=== PATIENT | female | born 1925 | race Caucasian/White ===

== ENCOUNTER 2016-04-10 14:56 | Observation (INO) | payer MEDICARE, OTHER ==
[2016-04-10 15:33] LABS: ABSOLUTE BASOPHILS # (AUTO) 0.1 10^3/uL (0.0-0.2); ABSOLUTE EOSINOPHILS # (AUTO) 0.8 10^3/uL (0.0-0.6); ABSOLUTE MONOCYTES (AUTO) 1.1 10^3/uL (0.1-1.4); BASOPHILS % (AUTO) 0.9 % (0-2); EOSINOPHILS % (AUTO) 8.5 % (0-6); HEMATOCRIT 38.7 % (36.0-47.0); HEMOGLOBIN 12.1 g/dL (12.0-15.5); HGB HCT DIFFERENCE -2.4; LYMPHOCYTES % (AUTO) 22.8 % (13-45); MEAN CORPUSCULAR HEMOGLOBIN 26.8 pg (27.0-33.4); MEAN CORPUSCULAR HGB CONC 31.2 g/dL (32.0-36.0); MEAN CORPUSCULAR VOLUME 86 fl (80-97); RED CELL DISTRIBUTION WIDTH 16.7 % (11.5-14.0); SEGMENTED NEUTROPHILS % (AUTO) 55.8 % (42-78)
[2016-04-10 15:48] LABS: ALANINE AMINOTRANSFERASE 21 U/L (9-52); ALBUMIN 4.2 g/dL (3.5-5.0); ALKALINE PHOSPHATASE 62 U/L (38-126); ANION GAP 16 (5-19); ASPARTATE AMINO TRANSFERASE 16 U/L (14-36); BILIRUBIN,TOTAL 0.4 mg/dL (0.2-1.3); BLOOD UREA NITROGEN 21 mg/dL (7-20); CALCIUM 9.1 mg/dL (8.4-10.2); CARBON DIOXIDE 25 mmol/L (22-30); CHLORIDE 98 mmol/L (98-107); CREATINE KINASE 28 U/L (30-135); CREATININE RESULT 0.68 mg/dL (0.52-1.25); GLUCOSE 157 mg/dL (75-110); POTASSIUM 3.7 mmol/L (3.6-5.0); SODIUM 138.8 mmol/L (137-145); TOTAL PROTEIN 6.8 g/dL (6.3-8.2)
[2016-04-10 16:00] LABS: CREATINE KINASE MB 1.17 ng/mL (<4.55); TROPONIN I < 0.012 ng/mL
--- NOTE | 2016-04-10 16:37 | EKG REPORT ---
SEVERITY:- ABNORMAL ECG - ATRIAL FIBRILLATION, V-RATE 63-85 BORDERLINE RIGHT AXIS DEVIATION BORDERLINE T ABNORMALITIES, ANT-LAT LEADS BORDERLINE PROLONGED QT INTERVAL : Confirmed by: Uri De La Rosa MD 10-Apr-2016 16:36:46
[2016-04-10 17:00] LABS: PARTIAL THROMBOPLASTIN TIME 32.2 SEC (23.5-35.8); PROTHROMBIN TIME 25.8 SEC (11.4-15.4)
[2016-04-10 17:54] LABS: VENOUS BLOOD BASE EXCESS -0.4 mmol/L; VENOUS BLOOD PCO2 43.9 mmHg (35-63); VENOUS BLOOD PH 7.37 (7.30-7.42)
[2016-04-10] MEDS ORDERED: NORMAL SALINE 1000 ML 1,000 ML IV ONE (18:03)
[2016-04-10] MEDS ORDERED: ONDANSETRON HCL INJ/PF 4 MG/2 ML SDV IV ONE (18:03)
[2016-04-10 18:16] LABS: APPEARANCE,URINE SLIGHTLY-CLOUDY; BILIRUBIN,URINE NEGATIVE (NEGATIVE); GLUCOSE, URINE NEGATIVE (NEGATIVE); KETONES,URINE NEGATIVE (NEGATIVE); LEUKOCYTE ESTERASE,URINE TRACE (NEGATIVE); NITRITE,URINE NEGATIVE (NEGATIVE); PROTEIN,URINE NEGATIVE (NEGATIVE); URINE SPECIFIC GRAVITY 1.013; UROBILINOGEN,URINE NEGATIVE mg/dL (<2.0)
--- NOTE | 2016-04-10 18:20 | ER Document Report ---
ED General - General Chief Complaint: Near Syncope Stated Complaint: POSSIBLE SYNCOPE TRAVEL OUTSIDE OF THE [place] IN LAST 30 DAYS: No - HPI Patient complains to provider of: syncopal episode Notes: Patient coming in with syncope. Patient is originally from [place] has been recurrent since January states that she always comes in here for the wintertime. Has history of fibrillation on anticoagulation hypertension. Patient states compliant with her medications since they were all small today shopping when patient felt uneasy and sat down family states that the patient sat down she passed out. States patient was out for approximate 5-10 minutes. States patient has a history of syncopal before lasting for episode was approximately 2 years ago. Says that does not come to the hospital for any further evaluation. Patient states the pain no head pain chest pain no abdominal pain and nausea no vomiting fevers no chills prior to or after episode. Patient states currently she does feel "awful" - Related Data Allergies/Adverse Reactions: celecoxib [From Celebrex] Allergy (Verified 04/10/16 15:12) solifenacin succinate [From Vesicare] Allergy (Verified 04/10/16 15:12) Sulfa (Sulfonamide Antibiotics) Allergy (Verified 04/10/16 15:12) tolectrin Allergy (Uncoded 04/10/16 15:12) Home Medications: Current Home Medications Acetaminophen [Tylenol Extra Strength] 500 mg PO QID PRN 04/10/16 [History] Atorvastatin Calcium 10 mg PO QHS 04/10/16 [History] Cholecalciferol (Vitamin D3) [Vitamin D3 400 Unit Tablet] 400 unit PO DAILY [History] Cyanocobalamin (Vitamin B-12) [Vitamin B-12] 100 mcg PO MOWEFR 04/10/16 [History ] Diltiazem HCl [Cardizem Cd 180 mg Capsule] 180 mg PO BID 04/10/16 [History] Fluticasone Propionate [Flovent Hfa 110 Mcg Inhalation Aerosol 12 gm] 1 puff IH Q12 PRN 04/10/16 [History] Fluticasone/Salmeterol [Advair 500-50 Diskus 14 Dose/Diskus] 1 inh IH Q12 PRN [History] Hydrochlorothiazide 25 mg PO DAILY 04/10/16 [History] Lutein 6 mg PO DAILY 04/10/16 [History] Nitroglycerin [Nitrostat 0.4 mg (1/150 Gr) Tabs 25/Bottle] 1 tab SL Q5MP PRN [History] Warfarin Sodium 3 mg PO ASDIR PRN 04/10/16 [History] Past Medical History - Social History Smoking Status: Never Smoker Chew tobacco use (# tins/day): No Frequency of alcohol use: None Drug Abuse: None Family History: Reviewed & Not Pertinent, Hypertension Patient has suicidal ideation: No Patient has homicidal ideation: No - Past Medical History Cardiac Medical History: Reports: Hx Atrial Fibrillation, Hx Coronary Artery Disease, Hx Hypercholesterolemia, Hx Hypertension, Hx Heart Murmur Pulmonary Medical History: Reports: Hx Asthma, Hx Bronchitis, Hx COPD, Hx Pneumonia Denies: Hx Tuberculosis Endocrine Medical History: Reports: Hx Diabetes Mellitus Type 2, Hx Hypothyroidism Renal/ Medical History: Denies: Hx Peritoneal Dialysis Malignancy Medical History: Reports: Hx Skin Cancer GI Medical History: Reports: Hx Ulcer Musculoskeltal Medical History: Reports Hx Arthritis Psychiatric Medical History: Denies: Hx Depression Traumatic Medical History: Reports: Hx Fractures - neck Past Surgical History: Reports: Hx Cardiac Catheterization, Hx Section , Hx Coronary Artery Bypass Graft, Hx Coronary Stent, Hx Hysterectomy, Hx Orthopedic Surgery - foot, Hx Tonsillectomy. Denies: Hx Pacemaker - Immunizations Hx Diphtheria, Pertussis, Tetanus Vaccination: Yes Hx Pneumococcal Vaccination: 12/19/13 Review of Systems - Review of Systems Constitutional: No symptoms reported EENT: No symptoms reported Cardiovascular: Syncope Respiratory: No symptoms reported Gastrointestinal: No symptoms reported Genitourinary: No symptoms reported Female Genitourinary: No symptoms reported Musculoskeletal: No symptoms reported Skin: No symptoms reported Hematologic/Lymphatic: No symptoms reported Neurological/Psychological: No symptoms reported -: Yes All other systems reviewed and negative Physical Exam - Vital signs Vitals: Temp Resp BP Pulse Ox 97.2 F 15 121/95 H 94 04/10/16 15:04 04/10/16 15:04 04/10/16 15:04 04/10/16 15:04 Interpretation: Normal - General General appearance: Appears well, Alert - HEENT Head: Normocephalic, Atraumatic Eyes: Normal Pupils: PERRL - Respiratory Respiratory status: No respiratory distress Chest status: Nontender Breath sounds: Normal Chest palpation: Normal - Cardiovascular Rhythm: Irregularly irregular Heart sounds: Normal auscultation Murmur: No - Abdominal Inspection: Normal Distension: No distension Bowel sounds: Normal Tenderness: Nontender Organomegaly: No organomegaly - Back Back: Normal, Nontender - Extremities General upper extremity: Normal inspection, Nontender, Normal color, Normal ROM , Normal temperature General lower extremity: Normal inspection, Nontender, Normal color, Normal ROM , Normal temperature, Normal weight bearing. No: Leland's sign - Neurological Neuro grossly intact: Yes Cognition: Normal Orientation: AAOx4 [place] Coma Scale Eye Opening: Spontaneous [place] Coma Scale Verbal: Oriented Yudy Coma Scale Motor: Obeys Commands Yudy Coma Scale Total: 15 Speech: Normal Motor strength normal: LUE, RUE, LLE, RLE Sensory: Normal - Psychological Associated symptoms: Normal affect, Normal mood - Skin Skin Temperature: Warm Skin Moisture: Dry Skin Color: Normal Course - Re-evaluation Re-evalutation: 04/10/16 22:51 Patient coming in for syncope. No clear-cut etiology was seen. Unfortunately patient was unable to perform orthostatic testing according to nursing staff. Discussed with hospitalist will admit the patient for observation - Vital Signs Vital signs: Temp Pulse Resp BP Pulse Ox 98.0 F 18 155/119 H 97 04/10/16 21:43 04/10/16 19:00 04/10/16 19:00 04/10/16 19:00 - Laboratory Result Diagrams: 04/10/16 15:20 04/10/16 15:20 Laboratory results interpreted by me: 04/10/16 04/10/16 04/10/16 15:20 15:20 16:39 MCH 26.8 L MCHC 31.2 L RDW 16.7 H Eosinophils % 8.5 H Absolute Eosinophils 0.8 H PT 25.8 H BUN 21 H Glucose 157 H Creatine Kinase 28 L Ur Leukocyte Esterase Urine Ascorbic Acid 04/10/16 17:10 MCH MCHC RDW Eosinophils % Absolute Eosinophils PT BUN Glucose Creatine Kinase Ur Leukocyte Esterase TRACE H Urine Ascorbic Acid 20 H Discharge - Discharge Clinical Impression: Anticoagulant long-term use Syncope Qualifiers: Syncope type: unspecified Qualified Code(s): R55 - Syncope and collapse Atrial fibrillation Qualifiers: Atrial fibrillation type: unspecified Qualified Code(s): I48.91 - Unspecified atrial fibrillation Condition: Good Disposition: ADMITTED OBSERVATION Admitting Provider: Hospitalist - [facility] Admitted: Telemetry
[2016-04-10] MEDS ORDERED: ACETAMINOPHEN 325 MG TABLET PO PRN (18:43)
[2016-04-10] MEDS ORDERED: NORMAL SALINE 1000 ML 1,000 ML IV PRN (18:43)
[2016-04-10] MEDS ORDERED: ONDANSETRON 4 MG TAB.RAPDIS PO PRN (18:43)
[2016-04-10] MEDS ORDERED: NITROGLYCERIN 0.4 MG/TAB 25 TAB/BOTTLE SL PRN (18:47)
[2016-04-10] MEDS ORDERED: (PENDING PHARMACY ID) (Warfarin Sodium 3 MG) PO PRN (18:47)
[2016-04-10] MEDS ORDERED: FLUTICASONE/SALMETEROL DISKUS 500-50 MCG/DOSE IH PRN (18:47)
[2016-04-10] MEDS ORDERED: FLUTICASONE NASAL SPRAY 50 MCG/SPRY 120 SPRAY/16 GM NASL PRN (18:47)
[2016-04-10] MEDS ORDERED: GLUCAGON,HUMAN RECOMB 1 MG INJ IM PRN (18:49)
[2016-04-10] MEDS ORDERED: DEXTROSE 50%-WATER 25 GM/50 ML DISP.SYRIN IV PRN ×2 (18:49)
[2016-04-10] MEDS ORDERED: DEXTROSE 40% GEL 15 GM TUBE PO PRN ×2 (18:49)
--- NOTE | 2016-04-10 19:04 | PDOC H&P ---
History of Present Illness Patient complains of: Loss of consciousness at ashok alcaraz's History of Present Illness: MACO HERNANDEZ is a 89 year old female with a history of diabetes age fibrillation and coronary artery disease who presents after having a syncopal episode of ashok Alcarazs. She was there at a constitution party and had eaten 2 pieces of pizza but needed to go outside. Her granddaughter was helping her walk reports the door when the patient began to feel lightheaded and became unconscious. The granddaughter helped her in her arms was able to sit her down a chair. The patient remained unresponsive for approximately 10 minutes and then had some confusion when she came to as EMS arrived. The patient did not have any obvious tonic-clonic movements. The patient had just eaten and her blood sugar earlier this morning was 181. The patient has no recollection of the event and she did not have any bowel or bladder dysfunction. She does have history of age fibrillation but denied having any palpitations or tachycardia. The patient did not have any focal neurological findings when she awoke and the family did not notice any type of facial droop or anything focal on neurological exam. The patient had a head CT that does not show any acute event and her EKG does not show any obvious acute abnormality. The patient has never had an episode like this before. Past Medical History Cardiac Medical History: Reports: Atrial Fibrillation, Coronary Artery Disease, Hyperlipidema, Hypertension, Heart Murmur Pulmonary Medical History: Reports: Asthma, Bronchitis, Chronic Obstructive Pulmonary Disease (COPD), Pneumonia Denies: Tuberculosis Neurological Medical History: Denies: Seizures Endocrine Medical History: Reports: Diabetes Mellitus Type 2, Hypothyroidism Renal/ Medical History: Reports: None Malignancy Medical History: Reports: Skin Cancer GI Medical History: Reports: Gastroesophageal Reflux Disease Musculoskeltal Medical History: Reports: Arthritis Psychiatric Medical History: Denies: Depression Traumatic Medical History: Reports: None Hematology: Reports: Anemia Infectious Medical History: Reports: None Past Surgical History Past Surgical History: Reports: Cardiac Catheterization, Section, Coronary Artery Bypass Graft, Coronary Stent, Hysterectomy, Orthopedic Surgery - foot, Tonsillectomy Denies: Pacemaker Social History Information Source: Patient Lives with: Family Smoking Status: Never Smoker Frequency of Alcohol Use: None Hx Recreational Drug Use: No Drugs: None Hx Prescription Drug Abuse: No - Advance Directive Resuscitation Status: Do Not Resuscitate Family History Family History: Hypertension Family History: Mother at age 93 with no chronic health problems. Father in his 70s from coronary artery disease. Parental Family History Reviewed: Yes Children Family History Reviewed: No Sibling(s) Family History Reviewed.: No Medication/Allergy Home Medications: Aspirin [Aspirin 81 mg Chewable Tablet] 81 mg PO DAILY 05/02/14 Calcium Carbonate [Calcium] 600 mg PO DAILY 05/02/14 Cholecalciferol (Vitamin D3) [Vitamin D3] 1,000 unit PO DAILY 05/02/14 Fluticasone Propionate [Flonase Nasal [place] 50 Mcg/[place] 16 gm] 2 sprays NASL Q12 PRN 05/02/14 Ipratropium/Albuterol Sulfate [Combivent Respimat 4 gm Mdi] 1 - 2 puff IH Q6 PRN 05/02/14 Ipratropium/Albuterol Sulfate [Duoneb 3 ml Ampul] 3 ml NEB RTQ12 05/02/14 Levothyroxine Sodium 75 mcg PO QHS 05/02/14 Losartan Potassium 100 mg PO DAILY 05/02/14 Magnesium Oxide [Magnesium] 400 mg PO DAILY 05/02/14 Montelukast Sodium 10 mg PO QHS 05/02/14 Multivitamin [Multi-Vitamin Daily] 1 each PO DAILY 05/02/14 Cascade-3 Fatty Acids [Fish Oil] 1,200 mg PO DAILY 05/02/14 Pantoprazole Sodium 40 mg PO BID 05/02/14 Metformin HCl [Glucophage 500 mg Tablet] 500 mg PO BIDACBS #60 tab 05/05/14 Clonidine HCl [Catapres 0.1 mg Tablet] 0.1 mg PO Q8 #90 tablet 06/11/14 Acetaminophen [Tylenol Extra Strength] 500 mg PO QID PRN 04/10/16 Atorvastatin Calcium 10 mg PO QHS 04/10/16 Cholecalciferol (Vitamin D3) [Vitamin D3 400 Unit Tablet] 400 unit PO DAILY Cyanocobalamin (Vitamin B-12) [Vitamin B-12] 100 mcg PO MOWEFR 04/10/16 Diltiazem HCl [Cardizem Cd 180 mg Capsule] 180 mg PO BID 04/10/16 Fluticasone Propionate [Flovent Hfa 110 Mcg Inhalation Aerosol 12 gm] 1 puff IH Q12 PRN 04/10/16 Fluticasone/Salmeterol [Advair 500-50 Diskus 14 Dose/Diskus] 1 inh IH Q12 PRN Hydrochlorothiazide 25 mg PO DAILY 04/10/16 Lutein 6 mg PO DAILY 04/10/16 Nitroglycerin [Nitrostat 0.4 mg (1/150 Gr) Tabs 25/Bottle] 1 tab SL Q5MP PRN Warfarin Sodium 3 mg PO ASDIR PRN 04/10/16 Allergies/Adverse Reactions: celecoxib [From Celebrex] Allergy (Verified 04/10/16 15:12) solifenacin succinate [From Vesicare] Allergy (Verified 04/10/16 15:12) Sulfa (Sulfonamide Antibiotics) Allergy (Verified 04/10/16 15:12) tolectrin Allergy (Uncoded 04/10/16 15:12) Review of Systems Constitutional: ABSENT: chills, fever(s), headache(s), night sweats, weakness, weight gain, weight loss Eyes: ABSENT: visual disturbances Ears: ABSENT: hearing changes Cardiovascular: ABSENT: chest pain, dyspnea on exertion, edema, orthropnea, palpitations Respiratory: ABSENT: cough, hemoptysis Gastrointestinal: ABSENT: abdominal pain, constipation, diarrhea, hematemesis, hematochezia, nausea, vomiting Genitourinary: ABSENT: dysuria, hematuria Musculoskeletal: ABSENT: joint swelling Integumentary: ABSENT: rash, wounds Neurological: PRESENT: as per HPI Psychiatric: ABSENT: anxiety, depression Endocrine: ABSENT: cold intolerance, heat intolerance, polydipsia, polyuria Hematologic/Lymphatic: ABSENT: easy bleeding, easy bruising Physical Exam Vital Signs: Temp Pulse Resp BP Pulse Ox 97.2 F 19 151/76 H 96 04/10/16 15:04 04/10/16 18:01 04/10/16 18:00 04/10/16 18:01 Intake & Output 04/09/16 04/10/16 04/11/16 06:59 06:59 06:59 Weight 50 kg General appearance: PRESENT: no acute distress, thin, well-developed Head exam: PRESENT: atraumatic, normocephalic Eye exam: PRESENT: conjunctiva pink, EOMI, PERRLA. ABSENT: scleral icterus Ear exam: PRESENT: normal external ear exam Mouth exam: PRESENT: moist, tongue midline Neck exam: ABSENT: carotid bruit, JVD, lymphadenopathy, thyromegaly Respiratory exam: PRESENT: clear to auscultation brandon. ABSENT: rales, rhonchi, wheezes Cardiovascular exam: PRESENT: irregular rhythm, systolic murmur - 3/6 systolic murmur.. ABSENT: diastolic murmur, rubs Pulses: PRESENT: normal carotid pulses Vascular exam: PRESENT: normal capillary refill GI/Abdominal exam: PRESENT: normal bowel sounds, soft. ABSENT: distended, guarding, mass, organolmegaly, rebound, tenderness Rectal exam: PRESENT: deferred Extremities exam: PRESENT: full ROM. ABSENT: calf tenderness, clubbing, pedal edema Neurological exam: PRESENT: alert, awake, oriented to person, oriented to place , oriented to time, oriented to situation, CN II-XII grossly intact. ABSENT: motor sensory deficit Psychiatric exam: PRESENT: appropriate affect Skin exam: PRESENT: dry, intact, warm. ABSENT: cyanosis, rash Results Laboratory Results: 04/10/16 15:20 04/10/16 15:20 04/10/16 04/10/16 04/10/16 15:20 15:20 15:20 WBC 9.0 RBC 4.50 Hgb 12.1 Hct 38.7 MCV 86 MCH 26.8 L MCHC 31.2 L RDW 16.7 H Plt Count 316 Seg Neutrophils % 55.8 Lymphocytes % 22.8 Monocytes % 12.0 Eosinophils % 8.5 H Basophils % 0.9 Absolute Neutrophils 5.0 Absolute Lymphocytes 2.0 Absolute Monocytes 1.1 Absolute Eosinophils 0.8 H Absolute Basophils 0.1 VBG pH VBG pCO2 VBG HCO3 VBG Base Excess Sodium 138.8 Potassium 3.7 Chloride 98 Carbon Dioxide 25 Anion Gap 16 BUN 21 H Creatinine 0.68 Est GFR ( Amer) > 60 Est GFR (Non-Af Amer) > 60 Glucose 157 H Calcium 9.1 Total Bilirubin 0.4 AST 16 ALT 21 Alkaline Phosphatase 62 Total Protein 6.8 Albumin 4.2 Lipase 127.4 Urine Color Urine Appearance Urine pH Ur Specific [place] Urine Protein Urine Glucose (UA) Urine Ketones Urine Blood Urine Nitrite Ur Leukocyte Esterase Urine WBC (Auto) Urine RBC (Auto) 04/10/16 04/10/16 17:10 17:45 WBC RBC Hgb Hct MCV MCH MCHC RDW Plt Count Seg Neutrophils % Lymphocytes % Monocytes % Eosinophils % Basophils % Absolute Neutrophils Absolute Lymphocytes Absolute Monocytes Absolute Eosinophils Absolute Basophils VBG pH 7.37 VBG pCO2 43.9 VBG HCO3 25.0 VBG Base Excess -0.4 Sodium Potassium Chloride Carbon Dioxide Anion Gap BUN Creatinine Est GFR ( Amer) Est GFR (Non-Af Amer) Glucose Calcium Total Bilirubin AST ALT Alkaline Phosphatase Total Protein Albumin Lipase Urine Color YELLOW Urine Appearance SLIGHTLY-CLOUDY Urine pH 6.0 Ur Specific [place] 1.013 Urine Protein NEGATIVE Urine Glucose (UA) NEGATIVE Urine Ketones NEGATIVE Urine Blood NEGATIVE Urine Nitrite NEGATIVE Ur Leukocyte Esterase TRACE H Urine WBC (Auto) 6 Urine RBC (Auto) 1 04/10/16 04/10/16 15:20 15:20 Creatine Kinase 28 L CK-MB (CK-2) 1.17 Troponin I < 0.012 Impressions: Chest X-Ray 04/10/16 15:48 IMPRESSION: NO ACUTE RADIOGRAPHIC FINDING IN THE CHEST. Head CT 04/10/16 15:48 IMPRESSION: No acute intracranial abnormality identified. Diffuse sinusitis. Assessment & Plan - Diagnosis (1) Syncope Qualifiers: Syncope type: unspecified Qualified Code(s): R55 - Syncope and collapse Is this a current diagnosis for this admission?: YesPlan: Etiology of the syncope is not entirely clear. Patient had approximately 10 minute episode of being unconscious and unresponsive. She did not have any tonic-clonic movements of the possibility of this being seizures unlikely. The possibility that she had an acute CVA with or TIA with resumption of normal neurological function as possible. More likely is that she had a cardiac arrhythmia. She does has a history of atrial fibrillation as well as coronary artery disease. We will monitor on telemetry and check serial cardiac enzymes. On exam she does have what sounds to be aortic stenosis on exam we will check a echocardiogram. We'll also check carotid Dopplers to make certain she does not have any significant abnormalities. The patient is anticoagulated on Coumadin and is also on aspirin. She is in atrial fibrillation but is rate controlled at this time. (2) Hypothyroidism Is this a current diagnosis for this admission?: YesPlan: Continue Synthroid. (3) Hypertension Is this a current diagnosis for this admission?: YesPlan: Patient is on losartan, diltiazem, clonidine. (4) Hyperlipidemia Is this a current diagnosis for this admission?: YesPlan: Continue with fish oil. (5) Atrial fibrillation Qualifiers: Atrial fibrillation type: unspecified Qualified Code(s): I48.91 - Unspecified atrial fibrillation Is this a current diagnosis for this admission?: YesPlan: Patient is on Coumadin, diltiazem. (6) Coronary atherosclerosis Is this a current diagnosis for this admission?: YesPlan: Patient has not had any chest pain but we will check serial cardiac enzymes. Continue with aspirin. (7) Diabetes mellitus type 2 in nonobese Is this a current diagnosis for this admission?: YesPlan: We'll hold metformin and cover with sliding scale insulin while the patient is here - Time Time Spent: 50 to 70 Minutes - Plan Summary Plan Summary: Patient will be admitted as observation as I anticipate his require less than a two midnight stay.
[2016-04-10] MEDS: IPRATROPIUM/ALBUTEROL 0.5-2.5 MG/3 ML AMPUL NEB SCH (20:14)
[2016-04-10] MEDS: INSULIN REG, HUMAN 100 UNIT/ML 3 ML VIAL (PYX) SUBCUT PRN (21:27)
[2016-04-10] MEDS: DILTIAZEM HCL 180 MG CAPSULE.CR PO SCH (21:29)
[2016-04-10] MEDS: CLONIDINE HCL 0.1 MG TABLET PO SCH (21:32)
[2016-04-10 21:35] LABS: CREATINE KINASE MB 1.15 ng/mL (<4.55)
[2016-04-10 21:36] LABS: TROPONIN I < 0.012 ng/mL
[2016-04-10] MEDS ORDERED: ATORVASTATIN CALCIUM 10 MG TABLET PO SCH (22:00)
[2016-04-10] MEDS ORDERED: FAMOTIDINE 20 MG TABLET PO SCH (22:00)
[2016-04-10] MEDS ORDERED: LEVOTHYROXINE SODIUM 0.075 MG TABLET PO SCH (22:00)
[2016-04-10] MEDS ORDERED: FAMOTIDINE 20 MG TABLET PO ONE (22:00)
[2016-04-10] MEDS ORDERED: MONTELUKAST SODIUM 10 MG TABLET PO SCH (22:00)
[2016-04-11] MEDS: ALBUTEROL SULFATE 0.083% NEB 2.5 MG/3 ML AMPUL NEB PRN ×2 (01:55→13:55)
[2016-04-11 05:03] LABS: HEMATOCRIT 36.4 % (36.0-47.0); HEMOGLOBIN 11.6 g/dL (12.0-15.5); HGB HCT DIFFERENCE -1.6; MEAN CORPUSCULAR HEMOGLOBIN 26.9 pg (27.0-33.4); MEAN CORPUSCULAR HGB CONC 31.7 g/dL (32.0-36.0); MEAN CORPUSCULAR VOLUME 85 fl (80-97); RED BLOOD COUNT 4.29 10^6/uL (3.72-5.28); RED CELL DISTRIBUTION WIDTH 16.7 % (11.5-14.0); WHITE BLOOD COUNT 12.9 10^3/uL (4.0-10.5)
[2016-04-11 05:07] LABS: PROTHROMBIN TIME 25.2 SEC (11.4-15.4)
[2016-04-11 05:26] LABS: ANION GAP 12 (5-19); BLOOD UREA NITROGEN 19 mg/dL (7-20); CALCIUM 9.4 mg/dL (8.4-10.2); CARBON DIOXIDE 28 mmol/L (22-30); CHLORIDE 98 mmol/L (98-107); CREATINE KINASE 38 U/L (30-135); CREATININE RESULT 0.51 mg/dL (0.52-1.25); GLUCOSE 162 mg/dL (75-110); POTASSIUM 4.2 mmol/L (3.6-5.0); SODIUM 137.8 mmol/L (137-145)
[2016-04-11 05:36] LABS: CREATINE KINASE MB 1.37 ng/mL (<4.55)
[2016-04-11 05:40] LABS: TROPONIN I < 0.012 ng/mL
[2016-04-11] MEDS: CLONIDINE HCL 0.1 MG TABLET PO SCH ×2 (05:50→14:34)
[2016-04-11 06:39] LABS: APPEARANCE,URINE CLEAR; BILIRUBIN,URINE NEGATIVE (NEGATIVE); GLUCOSE, URINE NEGATIVE (NEGATIVE); KETONES,URINE NEGATIVE (NEGATIVE); LEUKOCYTE ESTERASE,URINE TRACE (NEGATIVE); NITRITE,URINE POSITIVE (NEGATIVE); PROTEIN,URINE NEGATIVE (NEGATIVE); UROBILINOGEN,URINE NEGATIVE mg/dL (<2.0)
[2016-04-11] MEDS ORDERED: CALCIUM CARBONATE 500 MG TABLET PO SCH (08:00)
[2016-04-11] MEDS: LANSOPRAZOLE 30 MG TAB.RAP.DR PO SCH ×2 (08:29→16:22)
[2016-04-11] MEDS: INSULIN REG, HUMAN 100 UNIT/ML 3 ML VIAL (PYX) SUBCUT PRN ×2 (08:35→12:20)
[2016-04-11] MEDS: IPRATROPIUM/ALBUTEROL 0.5-2.5 MG/3 ML AMPUL NEB SCH (08:45)
[2016-04-11 09:59] LABS: TROPONIN I < 0.012 ng/mL
[2016-04-11] MEDS ORDERED: CHOLECALCIFEROL (D3) 1,000 UNIT TABLET PO SCH (10:00)
[2016-04-11] MEDS ORDERED: ASPIRIN 81 MG TABLET, CHEWABLE PO SCH (10:00)
[2016-04-11] MEDS ORDERED: LOSARTAN POTASSIUM 50 MG TABLET PO SCH (10:00)
[2016-04-11] MEDS ORDERED: OMEGA-3 ACID ETHYL ESTERS 1 GM CAPSULE PO SCH (10:00)
[2016-04-11] MEDS ORDERED: CHOLECALCIFEROL (D3) 400 UNIT TABLET PO SCH (10:00)
[2016-04-11] MEDS ORDERED: (PENDING PHARMACY ID) (Magnesium Oxide [Magnesium] 400 MG) PO SCH (10:00)
[2016-04-11] MEDS ORDERED: HYDROCHLOROTHIAZIDE 25 MG TABLET PO SCH (10:00)
[2016-04-11] MEDS ORDERED: (PENDING PHARMACY ID) (Cholecalciferol (Vitamin D3) [Vitamin D3] 1,000 UNIT) PO SCH (10:00)
[2016-04-11] MEDS ORDERED: MULTIVITAMIN TABLET PO SCH (10:00)
[2016-04-11] MEDS ORDERED: (PENDING PHARMACY ID) (Calcium Carbonate [Calcium] 600 MG) PO SCH (10:00)
[2016-04-11] MEDS ORDERED: LUTEIN 6 MG PO SCH (10:00)
[2016-04-11] MEDS ORDERED: OMEGA PO SCH (10:00)
[2016-04-11] MEDS ORDERED: MAGNESIUM OXIDE 400 MG TABLET PO SCH (10:00)
[2016-04-11] MEDS ORDERED: FATTY ACIDS PO SCH (10:00)
[2016-04-11] MEDS: DILTIAZEM HCL 180 MG CAPSULE.CR PO SCH (10:22)
[2016-04-11] MEDS ORDERED: FAMOTIDINE 20 MG TABLET PO ONE (11:45)
--- NOTE | 2016-04-11 14:51 | XCELERA REPORT ---
[address] [address] Transthoracic Echocardiogram Report Name: MACO HERNANDEZ Age: 89 yrs Gender: Female : 1925 Patient Status: Inpatient Patient Location: [id number]\433\[id number]\A Study Date: 04/11/2016 12:47 PM Height: 64 in Weight: 124 lb BSA: 1.6 m2 Procedure: A two-dimensional transthoracic echocardiogram with color flow and Doppler was performed. The study was technically limited with all images being suboptimal in quality. Reason For Study: SYNCOPE / History: SYNCOPE / . Ordering Physician: DENAE DEXTER Performed By: Chanell Weaver Interpretation Summary The left ventricle is normal in size. There is normal left ventricular wall thickness. Left ventricular systolic function is normal. LV EF is > than 60% LV diastolic function not assessed. The left ventricular wall motion is normal. There is no thrombus. The right ventricle is mildly dilated. The right ventricular systolic function is mildly reduced. The right atrium is mildly dilated. There is moderate mitral annular calcification. There is mild to moderate mitral leaflet calcification. There is no evidence of mitral valve prolapse. There is no vegetation seen on the mitral valve. There is no mitral valve stenosis. There is a moderate amount of mitral regurgitation There is mild aortic stenosis There is a peak gradient of 19 mm of Hg. No hemodynamically significant valvular aortic stenosis. There is a trace amount of aortic regurgitation There is no tricuspid stenosis. There is a severe amount of tricuspid regurgitation Moderatee to severe TR.RVSP is 63 to 66 mm of Hg , with RA mean of 12 to 15.. The aortic root is normal size. There is no pericardial effusion. MMode/2D Measurements \T\ Calculations RVDd: 3.2 cm LVIDd: 3.9 cm FS: 32.7 % Ao root diam: IVSd: 0.90 cm LVIDs: 2.6 cm EDV(Teich): 2.6 cm LVPWd: 0.89 cm 65.6 ml Ao root area: ESV(Teich): 25.1 ml 5.2 cm2 EF(Teich): LA dimension: 61.8 % 4.2 cm LVOT diam: 1.9 cm LA A2Cs: LA A4Cs: LA length: 5.2 cm LVOT area: 2.8 cm2 24.7 cm2 20.7 cm2 LA Vol Index (BP): LA Volume: 84.1 ml 52.7 ml/m2 Doppler Measurements \T\ Calculations MV E max bassam: MV P1/2t max bassam: Ao V2 max: LV V1 max P.2 cm/sec 123.4 cm/sec 218.5 cm/sec 12.7 mmHg MV P1/2t: 71.4 msec Ao max PG: LV V1 mean PG: MVA(P1/2t): 3.1 cm2 19.2 mmHg 9.7 mmHg MV dec slope: Ao V2 mean: LV V1 max: 157.1 cm/sec 177.5 cm/sec 506.2 cm/sec2 Ao mean PG: LV V1 mean: MV dec time: 11.6 mmHg 149.1 cm/sec 0.24 sec Ao V2 VTI: 55.9 cm LV V1 VTI: YUE(I,D): 2.5 cm2 49.4 cm YUE(V,D): 2.3 cm2 SV(LVOT): 139.4 mlPA V2 max: PI end-d bassam: TR max bassam: 43.6 cm/sec 142.5 cm/sec 354.3 cm/sec PA max P.76 mmHg TR max P.2 mmHg Left Ventricle The left ventricle is normal in size. There is normal left ventricular wall thickness. Left ventricular systolic function is normal. LV EF is > than 60%. LV diastolic function not assessed. The left ventricular wall motion is normal. There is no thrombus. Right Ventricle The right ventricle is mildly dilated. The right ventricular systolic function is mildly reduced. Atria The right atrium is mildly dilated. The left atrium is mildly dilated. Mitral Valve There is moderate mitral annular calcification. There is mild to moderate mitral leaflet calcification. There is no evidence of mitral valve prolapse. There is no vegetation seen on the mitral valve. There is no mitral valve stenosis. There is a moderate amount of mitral regurgitation. Aortic Valve There is no aortic valvular vegetation. There is mild aortic stenosis. There is a peak gradient of 19 mm of Hg. No hemodynamically significant valvular aortic stenosis. There is a trace amount of aortic regurgitation. Tricuspid Valve There is no tricuspid stenosis. There is a severe amount of tricuspid regurgitation. Moderatee to severe TR.RVSP is 63 to 66 mm of Hg , with RA mean of 12 to 15.. Pulmonic Valve There is no pulmonic valvular stenosis. There is a trace amount of pulmonic regurgitation. Great Vessels The aortic root is normal size. Effusions There is no pericardial effusion. : DENAE DEXTER > Arlene Sears
--- NOTE | 2016-04-11 16:57 | PDOC DISCHARGE SUMMARY ---
General - Admit/Disc Date/PCP Admission Date/Primary Care Provider: 04/10/16 18:43 Discharge Date: 04/11/16 - Discharge Diagnosis (1) Syncope Is this a current diagnosis for this admission?: YesSummary: Possibly secondary to sick sinus syndrome. Patient had episodes of bradycardia down to the 40s overnight but was asymptomatic with these. Echocardiogram showed no significant aortic stenosis. (2) Hypothyroidism Is this a current diagnosis for this admission?: Yes (3) Hypertension Is this a current diagnosis for this admission?: Yes (4) Hyperlipidemia Is this a current diagnosis for this admission?: Yes (5) Atrial fibrillation Is this a current diagnosis for this admission?: Yes (6) Coronary atherosclerosis Is this a current diagnosis for this admission?: Yes (7) Diabetes mellitus type 2 in nonobese Is this a current diagnosis for this admission?: Yes - Additional Information Resuscitation Status: Do Not Resuscitate Discharge Diet: Diabetic Discharge Activity: Activity As Tolerated Home Medications: Aspirin [Aspirin 81 mg Chewable Tablet] 81 mg PO DAILY 05/02/14 Calcium Carbonate [Calcium] 600 mg PO DAILY 05/02/14 Cholecalciferol (Vitamin D3) [Vitamin D3] 1,000 unit PO DAILY 05/02/14 Fluticasone Propionate [Flonase Nasal [place] 50 Mcg/[place] 16 gm] 2 sprays NASL Q12 PRN 05/02/14 Ipratropium/Albuterol Sulfate [Combivent Respimat 4 gm Mdi] 1 - 2 puff IH Q6 PRN 05/02/14 Ipratropium/Albuterol Sulfate [Duoneb 3 ml Ampul] 3 ml NEB RTQ12 05/02/14 Levothyroxine Sodium 75 mcg PO QHS 05/02/14 Losartan Potassium 100 mg PO DAILY 05/02/14 Magnesium Oxide [Magnesium] 400 mg PO DAILY 05/02/14 Montelukast Sodium 10 mg PO QHS 05/02/14 Multivitamin [Multi-Vitamin Daily] 1 each PO DAILY 05/02/14 [place]-3 Fatty Acids [Fish Oil] 1,200 mg PO DAILY 05/02/14 Pantoprazole Sodium 40 mg PO BID 05/02/14 Metformin HCl [Glucophage 500 mg Tablet] 500 mg PO BIDACBS #60 tab 05/05/14 Clonidine HCl [Catapres 0.1 mg Tablet] 0.1 mg PO Q8 #90 tablet 06/11/14 Acetaminophen [Tylenol Extra Strength] 500 mg PO QID PRN 04/10/16 Atorvastatin Calcium 10 mg PO QHS 04/10/16 Cholecalciferol (Vitamin D3) [Vitamin D3 400 Unit Tablet] 400 unit PO DAILY Cyanocobalamin (Vitamin B-12) [Vitamin B-12] 100 mcg PO MOWEFR 04/10/16 Diltiazem HCl [Cardizem Cd 180 mg Capsule] 180 mg PO BID 04/10/16 Fluticasone Propionate [Flovent Hfa 110 Mcg Inhalation Aerosol 12 gm] 1 puff IH Q12 PRN 04/10/16 Fluticasone/Salmeterol [Advair 500-50 Diskus 14 Dose/Diskus] 1 inh IH Q12 PRN Hydrochlorothiazide 25 mg PO DAILY 04/10/16 Lutein 6 mg PO DAILY 04/10/16 Nitroglycerin [Nitrostat 0.4 mg (1/150 Gr) Tabs 25/Bottle] 1 tab SL Q5MP PRN Warfarin Sodium 4 mg PO QPM 04/10/16 History of Present Illness History of Present Illness: MACO HERNANDEZ is a 89 year old female with a history of diabetes age fibrillation and coronary artery disease who presents after having a syncopal episode of ashok e. Cheeses. She was there at a green party and had eaten 2 pieces of pizza but needed to go outside. Her granddaughter was helping her walk reports the door when the patient began to feel lightheaded and became unconscious. The granddaughter helped her in her arms was able to sit her down a chair. The patient remained unresponsive for approximately 10 minutes and then had some confusion when she came to as EMS arrived. The patient did not have any obvious tonic-clonic movements. The patient had just eaten and her blood sugar earlier this morning was 181. The patient has no recollection of the event and she did not have any bowel or bladder dysfunction. She does have history of atrial fibrillation but denied having any palpitations or tachycardia. The patient did not have any focal neurological findings when she awoke and the family did not notice any type of facial droop or anything focal on neurological exam. The patient had a head CT that does not show any acute event and her EKG does not show any obvious acute abnormality. The patient has never had an episode like this before. Hospital Course Hospital Course: The patient was admitted and monitor on telemetry. Дмитрий enzymes were negative. The patient overnight did have some episodes of bradycardia with heart rate down to the 40s but she was asymptomatic with these. Echocardiogram was done and did show some mild aortic stenosis but nothing severe enough to cause syncope. The patient did not have carotid Dopplers done today and we will get this scheduled outpatient. My concern is that this patient has a sick sinus syndrome and this was the cause for syncope with probable bradycardia. The patient bradycardia but was asymptomatic here. I have recommended the patient be evaluated by cardiology for consideration of an outpatient monitor for longer evaluation of her heart rhythms and possibly evaluation by electrophysiology. The patient's primary care is in [place] where she lives half the year. We will refer to Dr. Harrison Morales of [facility] cardiology as they also have electrophysiology services. Physical Exam Vital Signs: Temp Pulse Resp BP Pulse Ox 98.2 F 82 20 129/90 H 97 04/11/16 16:17 04/11/16 16:17 04/11/16 16:17 04/11/16 16:17 04/11/16 16:17 Intake & Output 04/10/16 04/11/16 04/12/16 06:59 06:59 06:59 Intake Total 820 2815 Output Total 600 1150 Balance 220 1665 Weight 56.3 kg General appearance: PRESENT: no acute distress Eye exam: PRESENT: conjunctiva pink. ABSENT: scleral icterus Ear exam: PRESENT: normal external ear exam Mouth exam: PRESENT: moist, tongue midline Neck exam: ABSENT: carotid bruit, JVD, lymphadenopathy, thyromegaly Respiratory exam: PRESENT: clear to auscultation brandon. ABSENT: rales, rhonchi, wheezes Cardiovascular exam: PRESENT: irregular rhythm. ABSENT: diastolic murmur, rubs , systolic murmur GI/Abdominal exam: PRESENT: normal bowel sounds, soft. ABSENT: distended, guarding, mass, organolmegaly, rebound, tenderness Extremities exam: ABSENT: calf tenderness, clubbing, pedal edema Neurological exam: PRESENT: alert, awake, oriented to person, oriented to place , oriented to time, oriented to situation, CN II-XII grossly intact. ABSENT: motor sensory deficit Psychiatric exam: PRESENT: appropriate affect Skin exam: PRESENT: dry, intact, warm. ABSENT: cyanosis, rash Results Laboratory Results: 04/11/16 03:50 04/11/16 03:50 04/11/16 04/11/16 04/11/16 03:50 03:50 05:15 WBC 12.9 H RBC 4.29 Hgb 11.6 L Hct 36.4 MCV 85 MCH 26.9 L MCHC 31.7 L RDW 16.7 H Plt Count 268 Sodium 137.8 Potassium 4.2 Chloride 98 Carbon Dioxide 28 Anion Gap 12 BUN 19 Creatinine 0.51 L Est GFR ( Amer) > 60 Est GFR (Non-Af Amer) > 60 Glucose 162 H Calcium 9.4 Urine Color YELLOW Urine Appearance CLEAR Urine pH 5.0 Ur Specific [place] 1.010 Urine Protein NEGATIVE Urine Glucose (UA) NEGATIVE Urine Ketones NEGATIVE Urine Blood SMALL H Urine Nitrite POSITIVE H Ur Leukocyte Esterase TRACE H Urine WBC (Auto) 2 04/10/16 04/10/16 04/11/16 21:01 21:01 03:50 Creatine Kinase 26 L CK-MB (CK-2) 1.15 1.37 Troponin I < 0.012 < 0.012 04/11/16 04/11/16 03:50 09:14 Creatine Kinase 38 CK-MB (CK-2) 1.90 Troponin I < 0.012 Impressions: Chest X-Ray 04/10/16 15:48 IMPRESSION: NO ACUTE RADIOGRAPHIC FINDING IN THE CHEST. Head CT 04/10/16 15:48 IMPRESSION: No acute intracranial abnormality identified. Diffuse sinusitis. Qualifiers PATEINT BEING DISCHARGED WITH ANY OF THE FOLLOWING DIAGNOSIS?: No Plan Discharge Plan: We'll discharge to home with her daughter. Patient will get outpatient carotid Dopplers and follow-up with Dr. Harrison Morales of [facility] cardiology for consideration of possible sick sinus syndrome. Time Spent: Less than 30 Minutes
[2016-04-11 17:14] VITALS: BP 149/74
[2016-04-12] MEDS ORDERED: FAMOTIDINE 20 MG TABLET PO SCH (10:00)
[2016-04-12] MEDS ORDERED: (PENDING PHARMACY ID) (Cyanocobalamin (Vitamin B-12) [Vitamin B-12] 100 MCG) PO SCH (18:47)
== END 2016-04-11 17:30 | disposition home or self-care (01) ==
LOC: ER 14:56 → EH 18:43 → 4S 23:49
PROVIDERS: ADMIT Internal Medicine; ATTEND Internal Medicine
DX: R55 Syncope and collapse (principal); E03.9 Hypothyroidism, unspecified; I10 Essential (primary) hypertension; I48.91 Unspecified atrial fibrillation; E11.9 Type 2 diabetes mellitus without complications; Z79.84 Long term (current) use of oral hypoglycemic drugs; E78.5 Hyperlipidemia, unspecified; R01.1 Cardiac murmur, unspecified; J44.9 Chronic obstructive pulmonary disease, unspecified; K21.9 Gastro-esophageal reflux disease without esophagitis; M19.90 Unspecified osteoarthritis, unspecified site; I25.810 Atherosclerosis of coronary artery bypass graft(s) without angina pectoris; Z95.1 Presence of aortocoronary bypass graft; Z95.5 Presence of coronary angioplasty implant and graft
CPT/HCPCS: 93005; 94640 ×2; 99285; 51701; 36415 ×2; 87086; 82553 ×2; 82962 ×2; 82550 ×2; 83690; 85025; 85027; 85610 ×2; 85730; 80048; 80053; 81001 ×2; 84484 ×2; 82803; 93306; 71010; 70450; 93010; G0378 ×3; A9270 ×22; J3490 ×3; J2405; J7030 ×2; J1815; J7620

== ENCOUNTER 2016-04-25 17:53 | Inpatient (IN) | payer MEDICARE, OTHER ==
[2016-04-25] MEDS ORDERED: PREDNISONE 20 MG TABLET PO ONE (18:10)
[2016-04-25] MEDS ORDERED: IPRATROPIUM/ALBUTEROL 0.5-2.5 MG/3 ML AMPUL NEB ONE ×2 (18:10→22:57)
--- NOTE | 2016-04-25 18:10 | ER Document Report ---
ED Medical Screen (RME) - General Stated Complaint: BLOOD PRESSURE PROBLEM Mode of Arrival: Wheelchair Information source: Patient, Relative Notes: Patient had her blood pressure medications adjusted recently decreasing her dose of Cardizem (last week) and eliminating her Catapres (2 days ago). Patient with elevated blood pressure today. Pt with chronic cough due to COPD that worsened over the past week. hx: Hypertension, COPD, diabetes, Alzheimer's I have greeted and performed a rapid initial assessment of this patient. A comprehensive ED assessment and evaluation of the patient, analysis of test results and completion of the medical decision making process will be conducted by additional ED providers. TRAVEL OUTSIDE OF THE [place] IN LAST 30 DAYS: No - Related Data Allergies/Adverse Reactions: celecoxib [From Celebrex] Allergy (Verified 04/25/16 18:07) solifenacin succinate [From Vesicare] Allergy (Verified 04/25/16 18:07) Sulfa (Sulfonamide Antibiotics) Allergy (Verified 04/25/16 18:07) tolectrin Allergy (Uncoded 04/25/16 18:07) Past Medical History - Past Medical History Cardiac Medical History: Reports: Hx Atrial Fibrillation, Hx Coronary Artery Disease, Hx Hypercholesterolemia, Hx Hypertension, Hx Heart Murmur Pulmonary Medical History: Reports: Hx Asthma, Hx Bronchitis, Hx COPD, Hx Pneumonia Denies: Hx Tuberculosis Neurological Medical History: Denies: Hx Seizures Endocrine Medical History: Reports: Hx Diabetes Mellitus Type 2, Hx Hypothyroidism Renal/ Medical History: Denies: Hx Peritoneal Dialysis Malignancy Medical History: Reports: Hx Skin Cancer GI Medical History: Reports: Hx Gastroesophageal Reflux Disease, Hx Ulcer Musculoskeltal Medical History: Reports Hx Arthritis Psychiatric Medical History: Denies: Hx Depression Traumatic Medical History: Reports: Hx Fractures - neck Past Surgical History: Reports: Hx Cardiac Catheterization, Hx Section , Hx Coronary Artery Bypass Graft, Hx Coronary Stent, Hx Hysterectomy, Hx Orthopedic Surgery - foot, Hx Tonsillectomy. Denies: Hx Pacemaker - Immunizations Hx Diphtheria, Pertussis, Tetanus Vaccination: Yes Physical Exam - Vital signs Vitals: Temp Pulse Resp BP Pulse Ox 97.7 F 114 H 22 H 174/99 H 92 04/25/16 18:04 04/25/16 18:04 04/25/16 18:04 04/25/16 18:04 04/25/16 18:04 - Respiratory Respiratory status: No respiratory distress Breath sounds: Productive cough, Rhonchi, Wheezing Course - Vital Signs Vital signs: Temp Pulse Resp BP Pulse Ox 97.7 F 114 H 22 H 174/99 H 92 04/25/16 18:04 04/25/16 18:04 04/25/16 18:04 04/25/16 18:04 04/25/16 18:04
[2016-04-25] MEDS ORDERED: ALBUTEROL SULFATE 0.083% NEB 2.5 MG/3 ML AMPUL NEB ONE (18:12)
--- NOTE | 2016-04-25 19:25 | EKG REPORT ---
SEVERITY:- ABNORMAL ECG - ATRIAL FIBRILLATION, V-RATE 93-142 BORDERLINE T ABNORMALITIES, INFERIOR LEADS : Confirmed by: Christiano Milian 25-Apr-2016 19:25:00
[2016-04-25 20:07] LABS: ABSOLUTE BASOPHILS # (AUTO) 0.1 10^3/uL (0.0-0.2); ABSOLUTE EOSINOPHILS # (AUTO) 1.1 10^3/uL (0.0-0.6); ABSOLUTE LYMPHOCYTES (AUTO) 2.4 10^3/uL (0.5-4.7); ABSOLUTE NEUT (AUTO) 12.4 10^3/uL (1.7-8.2); BASOPHILS % (AUTO) 0.3 % (0-2); EOSINOPHILS % (AUTO) 6.5 % (0-6); HEMATOCRIT 37.3 % (36.0-47.0); HEMOGLOBIN 12.1 g/dL (12.0-15.5); LYMPHOCYTES % (AUTO) 14.1 % (13-45); MEAN CORPUSCULAR HGB CONC 32.3 g/dL (32.0-36.0); MEAN CORPUSCULAR VOLUME 84 fl (80-97); MONOCYTES % (AUTO) 5.8 % (3-13); RED BLOOD COUNT 4.47 10^6/uL (3.72-5.28); SEGMENTED NEUTROPHILS % (AUTO) 73.3 % (42-78); WHITE BLOOD COUNT 16.9 10^3/uL (4.0-10.5)
[2016-04-25 20:17] LABS: ALANINE AMINOTRANSFERASE 32 U/L (9-52); ALKALINE PHOSPHATASE 83 U/L (38-126); ANION GAP 15 (5-19); ASPARTATE AMINO TRANSFERASE 17 U/L (14-36); BILIRUBIN,TOTAL 0.7 mg/dL (0.2-1.3); BLOOD UREA NITROGEN 14 mg/dL (7-20); CALCIUM 9.7 mg/dL (8.4-10.2); CARBON DIOXIDE 26 mmol/L (22-30); CHLORIDE 95 mmol/L (98-107); CREATININE RESULT 0.47 mg/dL (0.52-1.25); GLUCOSE 192 mg/dL (75-110); POTASSIUM 4.1 mmol/L (3.6-5.0); SODIUM 135.9 mmol/L (137-145); TOTAL PROTEIN 7.7 g/dL (6.3-8.2)
[2016-04-25] MEDS ORDERED: NORMAL SALINE 1000 ML 250 ML IV ONE (22:57)
--- NOTE | 2016-04-25 22:57 | ER Document Report ---
ED General - General Time seen by provider: 22:45 Mode of Arrival: Wheelchair Information source: Patient, Relative TRAVEL OUTSIDE OF THE [place] IN LAST 30 DAYS: No - HPI Onset: Other - see HPI Onset/Duration: Gradual, Persistent Associated symptoms: Other - cough <ANGLE NEELY - Last Filed: 04/26/16 02:03> <ANIESTEPHANIA HO - Last Filed: 04/26/16 04:33> - General Chief Complaint: High Blood Pressure Stated Complaint: BLOOD PRESSURE PROBLEM Notes: Patient is a 81 [id number] female presenting to the emergency department with complaints of hypertension and cough. Patient was recently admitted to the emergency department on 04/10 for syncope; patient was discharged home on . Patient states she has had an increased cough over the past 2 days. Patient saw her chain pegger Dr. Morales on Tuesday. Patient states he changed her blood pressure medication; patient was taken off of Catapres and her dosage of Cardizem was lowered. Patient states she takes her Cardizem in the morning. Patient has a history of COPD, hypertension, and diabetes mellitus. Patient's relative also states the patient has been increasingly short of breath and has to take frequent breaks. (ANGLE NEELY) - Related Data Allergies/Adverse Reactions: celecoxib [From Celebrex] Allergy (Verified 04/25/16 18:07) solifenacin succinate [From Vesicare] Allergy (Verified 04/25/16 18:07) Sulfa (Sulfonamide Antibiotics) Allergy (Verified 04/25/16 18:07) tolectrin Allergy (Uncoded 04/25/16 18:07) Past Medical History - General Information source: Patient, Relative - Social History Smoking Status: Unknown if Ever Smoked Chew tobacco use (# tins/day): No Frequency of alcohol use: None Drug Abuse: None Family History: Hypertension Patient has suicidal ideation: No Patient has homicidal ideation: No - Past Medical History Cardiac Medical History: Reports: Hx Atrial Fibrillation, Hx Coronary Artery Disease, Hx Hypercholesterolemia, Hx Hypertension, Hx Heart Murmur Pulmonary Medical History: Reports: Hx Asthma, Hx Bronchitis, Hx COPD, Hx Pneumonia Endocrine Medical History: Reports: Hx Diabetes Mellitus Type 2, Hx Hypothyroidism Malignancy Medical History: Reports: Hx Skin Cancer GI Medical History: Reports: Hx Gastroesophageal Reflux Disease, Hx Ulcer Musculoskeltal Medical History: Reports Hx Arthritis Traumatic Medical History: Reports: Hx Fractures - neck Past Surgical History: Reports: Hx Cardiac Catheterization, Hx Section , Hx Coronary Artery Bypass Graft, Hx Coronary Stent, Hx Hysterectomy, Hx Orthopedic Surgery - foot, Hx Tonsillectomy - Immunizations Hx Diphtheria, Pertussis, Tetanus Vaccination: Yes Hx Pneumococcal Vaccination: 12/19/13 <ANGLE NEELY - Last Filed: 04/26/16 02:03> Review of Systems - Review of Systems Constitutional: No symptoms reported EENT: No symptoms reported Cardiovascular: No symptoms reported Respiratory: See HPI, Cough, Short of breath, Wheezing Gastrointestinal: No symptoms reported Genitourinary: No symptoms reported Female Genitourinary: No symptoms reported Musculoskeletal: No symptoms reported Skin: No symptoms reported Hematologic/Lymphatic: No symptoms reported Neurological/Psychological: No symptoms reported -: Yes All other systems reviewed and negative <ANGLE NEELY - Last Filed: 04/26/16 02:03> Physical Exam - Vital signs Interpretation: Hypertensive, Tachycardic, Hypoxic - General General appearance: Appears well, Alert In distress: Mild - HEENT Head: Normocephalic, Atraumatic Eyes: Normal Pupils: PERRL Mucous membranes: Moist - Respiratory Respiratory status: Other - hypoxic Chest status: Nontender Breath sounds: Wheezing - bilaterally Chest palpation: Normal - Cardiovascular Rhythm: Regular, Tachycardia Heart sounds: Normal auscultation Murmur: No - Abdominal Inspection: Normal Distension: No distension Bowel sounds: Normal Tenderness: Nontender Organomegaly: No organomegaly - Back Back: Normal, Nontender - Extremities General upper extremity: Normal inspection, Normal ROM, Normal strength General lower extremity: Normal inspection, Normal ROM, Normal strength - Neurological Neuro grossly intact: Yes Cognition: Normal Orientation: AAOx4 [place] Coma Scale Eye Opening: Spontaneous [place] Coma Scale Verbal: Oriented [place] Coma Scale Motor: Obeys Commands [place] Coma Scale Total: 15 Speech: Normal - Psychological Associated symptoms: Normal affect, Normal mood - Skin Skin Temperature: Warm Skin Moisture: Dry <ANGLE NEELY - Last Filed: 04/26/16 02:03> Course - Laboratory Result Diagrams: 04/25/16 19:52 04/25/16 19:52 <ANGLE NEELY - Last Filed: 04/26/16 02:03> - Laboratory Result Diagrams: 04/25/16 19:52 04/25/16 19:52 - Diagnostic Test Radiology reviewed: Reports reviewed <ESTEPHANIA LAW - Last Filed: 04/26/16 04:33> - Re-evaluation Re-evalutation: 04/26/16 Patient is an 89-year-old female who comes in with a cough and some difficulty breathing. Patient does not have oxygen at home. Patient is hypoxic here with exertion. Patient initially a heart rate of 117. Patient recently had her clonidine and Cardizem changed. Patient's heart rate has gone up to 150 here in the emergency department. Patient is feeling some chest tightness and difficulty breathing. Patient was started on Cardizem. She will likely need to be resume Cardizem twice a day. Discussed with hospitalist service. Patient has an elevated white count but this could be stress response. She has not had a fever here. A. fib and failure as opposed to pneumonia. Levaquin will be started at time of admission. Blood cultures have been sent. Stable at time of admission. (ESTEPHANIA LAW) - Vital Signs Vital signs: Temp Pulse Resp BP Pulse Ox 97.7 F 114 H 19 127/69 H 98 04/25/16 18:04 04/25/16 18:04 04/26/16 04:01 04/26/16 04:01 04/26/16 04:01 (ANGLE NEELY) (ESTEPHANIA LAW) - Laboratory Laboratory results interpreted by me: 04/25/16 04/25/16 04/25/16 19:52 19:52 19:52 WBC 16.9 H RDW 17.0 H Eosinophils % 6.5 H Absolute Neutrophils 12.4 H Absolute Eosinophils 1.1 H PT Sodium 135.9 L Chloride 95 L Creatinine 0.47 L Glucose 192 H NT-Pro-B Natriuret Pep 828 H 04/25/16 19:52 WBC RDW Eosinophils % Absolute Neutrophils Absolute Eosinophils PT 25.4 H Sodium Chloride Creatinine Glucose NT-Pro-B Natriuret Pep (ANGLE NEELY) (ESTEPHANIA LAW) Critical Care Note - Critical Care Note Total time excluding time spent on procedures (mins): 35 - evaluation and management of difficulty breathing with multiple re-evaluations, coordination of admission, counseling of patient <ESTEPHANIA LAW - Last Filed: 04/26/16 04:33> Discharge <ANGLE NEELY - Last Filed: 04/26/16 02:03> - Discharge Admitting Provider: [facility] Unit Admitted: [facility] <ESTEPHANIA LAW - Last Filed: 04/26/16 04:33> - Discharge Clinical Impression: Anticoagulant long-term use, Hypoxia, Cough Atrial fibrillation Qualifiers: Atrial fibrillation type: unspecified Qualified Code(s): I48.91 - Unspecified atrial fibrillation Pneumonia Qualifiers: Pneumonia type: due to unspecified organism Laterality: right Lung location: lower lobe of lung Qualified Code(s): J18.1 - Lobar pneumonia, unspecified organism Condition: Stable Disposition: ADMITTED INPATIENT Scribe Attestation: 04/26/16 04:33 I personally performed the services described in the documentation, reviewed and edited the documentation which was dictated to the scribe in my presence, and it accurately records my words and actions. (ESTEPHANIA LAW) Scribe Documentation - Scribe Written by Scribe:: Angle Neely 04/26/16 02:10 acting as scribe for :: Ani <ANGLE NEELY - Last Filed: 04/26/16 02:03>
[2016-04-25 23:06] LABS: PROTHROMBIN TIME 25.4 SEC (11.4-15.4)
[2016-04-25 23:17] LABS: TROPONIN I 0.021 ng/mL
[2016-04-26] MEDS ORDERED: DILTIAZEM HCL INJ 25 MG/5 ML VIAL IV ONE (01:46)
[2016-04-26] MEDS ORDERED: ENALAPRILAT DIHYDRATE INJ/PF 1.25 MG/1 ML SDV IV ONE ×2 (01:54→06:00)
[2016-04-26] MEDS ORDERED: FLUTICASONE/SALMETEROL DISKUS 500-50 MCG/DOSE IH PRN (01:54)
[2016-04-26] MEDS ORDERED: FLUTICASONE PROPIONATE HFA 110 MCG/PUFF 12 GM MDI IH PRN ×2 (01:54→12:54)
[2016-04-26] MEDS ORDERED: ONDANSETRON HCL INJ/PF 4 MG/2 ML SDV IV PRN ×2 (01:56→08:16)
[2016-04-26] MEDS: ATORVASTATIN CALCIUM 10 MG TABLET PO SCH (02:00)
[2016-04-26] MEDS ORDERED: DILTIAZEM HCL/D5W 125 ML IV PRN (02:24)
[2016-04-26] MEDS ORDERED: DILTIAZEM HCL/D5W 125 MG/125 ML RTUINJ IV ONE (02:24)
[2016-04-26] MEDS ORDERED: CALCIUM CARBONATE 500 MG TABLET PO SCH (02:30)
[2016-04-26 03:45] LABS: CREATINE KINASE MB 2.45 ng/mL (<4.55); TROPONIN I 0.023 ng/mL
[2016-04-26] MEDS ORDERED: HEPARIN SOD (PORCINE) 5,000 UNIT/ML 1 ML SYRINGE SUBCUT SCH (06:00)
[2016-04-26] MEDS ORDERED: CALCIUM CARBONATE 500 MG TABLET PO ONE (06:00)
[2016-04-26] MEDS ORDERED: ATORVASTATIN CALCIUM 10 MG TABLET PO ONE (06:00)
[2016-04-26] MEDS ORDERED: MAGNESIUM OXIDE 400 MG TABLET PO ONE (06:00)
--- NOTE | 2016-04-26 06:36 | PDOC H&P ---
History of Present Illness Admission Date/PCP: 04/26/16 01:56 Patient complains of: Shortness of breath and tachycardia History of Present Illness: MACO HERNANDEZ is a 89 year old female with a past medical history of atrial fibrillation and a recent reduction in her Cardizem by half and discontinuation of clonidine 6 days ago who is noted exceptional shortness of breath and palpitations over the last 24 hours prompting to seek evaluation emergency room where she's found to have uncontrolled A. fib in the 150s, and a chest x-ray suggestive of pulmonary basilar congestion and leukocytosis of 16,000 she started on empiric antibiotics and IV Cardizem plan referred to the hospitalist for admission Past Medical History Cardiac Medical History: Reports: Atrial Fibrillation, Coronary Artery Disease, Hyperlipidema, Hypertension, Heart Murmur Pulmonary Medical History: Reports: Asthma, Bronchitis, Chronic Obstructive Pulmonary Disease (COPD), Pneumonia Denies: Tuberculosis Neurological Medical History: Denies: Seizures Endocrine Medical History: Reports: Diabetes Mellitus Type 2, Hypothyroidism Malignancy Medical History: Reports: Skin Cancer GI Medical History: Reports: Gastroesophageal Reflux Disease Musculoskeltal Medical History: Reports: Arthritis Psychiatric Medical History: Denies: Depression Hematology: Reports: Anemia Past Surgical History Past Surgical History: Reports: Cardiac Catheterization, Section, Coronary Artery Bypass Graft, Coronary Stent, Hysterectomy, Orthopedic Surgery - foot, Tonsillectomy Denies: Pacemaker Social History Information Source: Patient Lives with: Family Smoking Status: Unknown if Ever Smoked Frequency of Alcohol Use: None Hx Recreational Drug Use: No Drugs: None Hx Prescription Drug Abuse: No - Advance Directive Resuscitation Status: Full Code Family History Family History: Hypertension Parental Family History Reviewed: Yes Children Family History Reviewed: Yes Sibling(s) Family History Reviewed.: Yes Medication/Allergy Home Medications: Aspirin [Aspirin 81 mg Chewable Tablet] 81 mg PO DAILY 05/02/14 Calcium Carbonate [Calcium] 600 mg PO DAILY 05/02/14 Fluticasone Propionate [Flonase Nasal [place] 50 Mcg/[place] 16 gm] 2 sprays NASL Q12 PRN 05/02/14 Ipratropium/Albuterol Sulfate [Combivent Respimat 4 gm Mdi] 1 - 2 puff IH Q6 PRN 05/02/14 Ipratropium/Albuterol Sulfate [Duoneb 3 ml Ampul] 3 ml NEB RTQ12 05/02/14 Levothyroxine Sodium 75 mcg PO QHS 05/02/14 Losartan Potassium 100 mg PO DAILY 05/02/14 Magnesium Oxide [Magnesium] 250 mg PO DAILY 05/02/14 Montelukast Sodium 10 mg PO QHS 05/02/14 Multivitamin [Multi-Vitamin Daily] 1 each PO DAILY 05/02/14 [place]-3 Fatty Acids [Fish Oil] 1,200 mg PO DAILY 05/02/14 Pantoprazole Sodium 40 mg PO BID 05/02/14 Metformin HCl [Glucophage 500 mg Tablet] 500 mg PO BIDACBS #60 tab 05/05/14 Acetaminophen [Tylenol Extra Strength] 500 mg PO QID PRN 04/10/16 Atorvastatin Calcium 10 mg PO QHS 04/10/16 Cholecalciferol (Vitamin D3) [Vitamin D3 400 Unit Tablet] 400 unit PO DAILY Cyanocobalamin (Vitamin B-12) [Vitamin B-12] 100 mcg PO MOWEFR 04/10/16 Diltiazem HCl [Cardizem Cd 180 mg Capsule] 180 mg PO BID 04/10/16 Fluticasone Propionate [Flovent Hfa 110 Mcg Inhalation Aerosol 12 gm] 1 puff IH Q12 PRN 04/10/16 Fluticasone/Salmeterol [Advair 500-50 Diskus 14 Dose/Diskus] 1 inh IH Q12 PRN Hydrochlorothiazide 25 mg PO DAILY 04/10/16 Lutein 6 mg PO DAILY 04/10/16 Nitroglycerin [Nitrostat 0.4 mg (1/150 Gr) Tabs 25/Bottle] 1 tab SL Q5MP PRN Warfarin Sodium 4 mg PO QPM 04/10/16 Insulin Detemir [Levemir Flextouch] 10 unit SQ QAM 04/26/16 Allergies/Adverse Reactions: celecoxib [From Celebrex] Allergy (Verified 04/25/16 18:07) solifenacin succinate [From Vesicare] Allergy (Verified 04/25/16 18:07) Sulfa (Sulfonamide Antibiotics) Allergy (Verified 04/25/16 18:07) tolectrin Allergy (Uncoded 04/25/16 18:07) Review of Systems Constitutional: ABSENT: chills, fever(s), headache(s), weight gain, weight loss Eyes: ABSENT: visual disturbances Ears: ABSENT: hearing changes Cardiovascular: ABSENT: chest pain, dyspnea on exertion, edema, orthropnea, palpitations Respiratory: ABSENT: cough, hemoptysis Gastrointestinal: ABSENT: abdominal pain, constipation, diarrhea, hematemesis, hematochezia, nausea, vomiting Genitourinary: ABSENT: dysuria, hematuria Musculoskeletal: ABSENT: joint swelling Integumentary: ABSENT: rash, wounds Neurological: ABSENT: abnormal gait, abnormal speech, confusion, dizziness, focal weakness, syncope Psychiatric: ABSENT: anxiety, depression, homidical ideation, suicidal ideation Endocrine: ABSENT: cold intolerance, heat intolerance, polydipsia, polyuria Hematologic/Lymphatic: ABSENT: easy bleeding, easy bruising Physical Exam Vital Signs: Temp Pulse Resp BP Pulse Ox 97.7 F 114 H 19 143/77 H 98 04/25/16 18:04 04/25/16 18:04 04/26/16 05:01 04/26/16 05:01 04/26/16 05:01 General appearance: PRESENT: cooperative, mild distress, thin Head exam: PRESENT: atraumatic, normocephalic Eye exam: PRESENT: conjunctiva pink, EOMI, PERRLA. ABSENT: scleral icterus Ear exam: PRESENT: normal external ear exam Mouth exam: PRESENT: moist, tongue midline Neck exam: ABSENT: carotid bruit, JVD, lymphadenopathy, thyromegaly Respiratory exam: PRESENT: accessory muscle use, crackles, decreased breath sounds, prolonged expiratory phas, symmetrical, tachypnea. ABSENT: chest wall tenderness, retraction Cardiovascular exam: PRESENT: irregular rhythm, tachycardia Pulses: PRESENT: normal dorsalis pedis pul Vascular exam: PRESENT: normal capillary refill GI/Abdominal exam: PRESENT: normal bowel sounds, soft. ABSENT: distended, guarding, mass, organolmegaly, rebound, tenderness Rectal exam: PRESENT: deferred Extremities exam: PRESENT: full ROM. ABSENT: calf tenderness, clubbing, pedal edema Neurological exam: PRESENT: alert, awake, oriented to person, oriented to place , oriented to time, oriented to situation, CN II-XII grossly intact. ABSENT: motor sensory deficit Psychiatric exam: PRESENT: appropriate affect, normal mood. ABSENT: homicidal ideation, suicidal ideation Skin exam: PRESENT: dry, intact, warm. ABSENT: cyanosis, rash Results Laboratory Results: 04/26/16 04/26/16 02:48 02:48 Creatine Kinase 58 CK-MB (CK-2) 2.45 Troponin I 0.023 Impressions: Chest X-Ray 04/25/16 18:11 IMPRESSION: COPD. MILD CARDIOMEGALY. NO ACUTE RADIOGRAPHIC FINDING IN THE CHEST. Assessment & Plan - Diagnosis (1) Atrial fibrillation Qualifiers: Atrial fibrillation type: unspecified Qualified Code(s): I48.91 - Unspecified atrial fibrillation Is this a current diagnosis for this admission?: YesPlan: Patient has had recent reduction of Cardizem by half and discontinuation of clonidine. She is stabilized on IV Cardizem with a heart rate in the 90s plan is to evaluate for acute coronary syndrome and reintroduce oral Cardizem from 180 once a day to 120 twice a day. (2) Acute bronchitis Is this a current diagnosis for this admission?: YesPlan: Patient has had a nonproductive cough's unclear if this is infectious versus high output failure that said she is decompensated from a cardiopulmonary standpoint and if developed natan pneumonia would be devastating. Given her leukocytosis she'll receive IV antibiotics Xopenex and Atrovent consideration of follow-up chest x-ray, a.m. CBC and chemistry ordered (3) Congestive heart failure Is this a current diagnosis for this admission?: YesPlan: Most likely secondary to high output failure of uncontrolled A. fib reevaluation of status following rate control - Time Time Spent: 50 to 70 Minutes
[2016-04-26] MEDS ORDERED: GLUCAGON,HUMAN RECOMB 1 MG INJ IM PRN (06:46)
[2016-04-26] MEDS ORDERED: DEXTROSE 50%-WATER SYRINGE 12.5 GM/25 ML DOSE IV PRN (06:46)
[2016-04-26] MEDS ORDERED: DEXTROSE 40% GEL 15 GM TUBE PO PRN (06:46)
[2016-04-26] MEDS ORDERED: DEXTROSE 40% GEL 15 GM TUBE X 2 PO PRN (06:46)
[2016-04-26] MEDS ORDERED: DEXTROSE 50%-WATER SYRINGE 25 GM/50 ML DOSE IV PRN (06:46)
[2016-04-26] MEDS ORDERED: FLUTICASONE NASAL SPRAY 50 MCG/SPRY 120 SPRAY/16 GM NASL PRN (07:44)
[2016-04-26] MEDS ORDERED: NITROGLYCERIN 0.4 MG/TAB 25 TAB/BOTTLE SL PRN (07:44)
[2016-04-26] MEDS: CLONIDINE HCL 0.1 MG TABLET PO SCH ×3 (07:48→21:59)
--- NOTE | 2016-04-26 08:11 | EKG REPORT ---
SEVERITY:- ABNORMAL ECG - ATRIAL FIBRILLATION, V-RATE 114-142 REPOLARIZATION ABNORMALITY, PROB RATE RELATED : Confirmed by: Uri De La Rosa MD 26-Apr-2016 08:10:26
[2016-04-26 09:34] LABS: ABSOLUTE MONOCYTES (AUTO) 1.1 10^3/uL (0.1-1.4); ABSOLUTE NEUT (AUTO) 7.3 10^3/uL (1.7-8.2); BASOPHILS % (AUTO) 0.3 % (0-2); EOSINOPHILS % (AUTO) 0.1 % (0-6); HEMATOCRIT 34.8 % (36.0-47.0); HEMOGLOBIN 11.4 g/dL (12.0-15.5); HGB HCT DIFFERENCE -0.6; LYMPHOCYTES % (AUTO) 19.4 % (13-45); MEAN CORPUSCULAR HEMOGLOBIN 27.6 pg (27.0-33.4); MEAN CORPUSCULAR HGB CONC 32.7 g/dL (32.0-36.0); MEAN CORPUSCULAR VOLUME 84 fl (80-97); MONOCYTES % (AUTO) 10.5 % (3-13); RED BLOOD COUNT 4.12 10^6/uL (3.72-5.28); RED CELL DISTRIBUTION WIDTH 16.9 % (11.5-14.0); SEGMENTED NEUTROPHILS % (AUTO) 69.7 % (42-78); WHITE BLOOD COUNT 10.5 10^3/uL (4.0-10.5)
[2016-04-26 09:56] LABS: ANION GAP 12 (5-19); BLOOD UREA NITROGEN 16 mg/dL (7-20); CALCIUM 9.6 mg/dL (8.4-10.2); CARBON DIOXIDE 28 mmol/L (22-30); CHLORIDE 95 mmol/L (98-107); CREATINE KINASE 64 U/L (30-135); CREATININE RESULT 0.53 mg/dL (0.52-1.25); GLUCOSE 179 mg/dL (75-110); POTASSIUM 4.4 mmol/L (3.6-5.0); SODIUM 134.7 mmol/L (137-145)
[2016-04-26] MEDS ORDERED: FATTY ACIDS PO SCH (10:00)
[2016-04-26] MEDS ORDERED: OMEGA PO SCH (10:00)
[2016-04-26] MEDS ORDERED: LUTEIN 6 MG PO SCH (10:00)
[2016-04-26] MEDS ORDERED: (PENDING PHARMACY ID) (Losartan Potassium [Losartan Potassium] 100 MG) PO SCH (10:00)
[2016-04-26 10:08] LABS: CREATINE KINASE MB 2.74 ng/mL (<4.55); TROPONIN I 0.04 ng/mL
[2016-04-26] MEDS ORDERED: DILTIAZEM HCL 180 MG CAPSULE.CR PO SCH (10:19)
[2016-04-26] MEDS: LEVOFLOXACIN 750 MG/D5W RTU 750 MG/150 ML RTUPB IV SCH (10:27)
[2016-04-26] MEDS: ASPIRIN 81 MG TABLET, CHEWABLE PO SCH (10:28)
[2016-04-26] MEDS: MULTIVITAMIN TABLET PO SCH (10:29)
[2016-04-26] MEDS: OMEGA-3 ACID ETHYL ESTERS 1 GM CAPSULE PO SCH (10:29)
[2016-04-26] MEDS: LOSARTAN POTASSIUM 50 MG TABLET PO SCH (10:29)
[2016-04-26] MEDS: METFORMIN HCL 500 MG TABLET PO SCH ×2 (10:29→15:25)
[2016-04-26] MEDS: MAGNESIUM OXIDE 400 MG TABLET PO SCH (10:30)
[2016-04-26] MEDS: INSULIN DETEMIR 100 UNIT/ML 3 ML PEN SUBCUT SCH (10:31)
[2016-04-26] MEDS: CALCIUM CARBONATE 500 MG TABLET PO SCH (10:45)
[2016-04-26] MEDS: INSULIN LISPRO 100 UNIT/ML 3 ML VIAL SUBCUT PRN (10:47)
[2016-04-26] MEDS ORDERED: DILTIAZEM HCL 180 MG CAPSULE.CR PO ONE (11:00)
[2016-04-26 11:06] LABS: THYROID STIMULATING HORMONE 0.94 uIU/mL (0.47-4.68)
[2016-04-26] MEDS: IPRATROPIUM/ALBUTEROL 0.5-2.5 MG/3 ML AMPUL NEB SCH ×2 (13:14→19:42)
[2016-04-26 15:01] LABS: CREATINE KINASE MB 4.34 ng/mL (<4.55); TROPONIN I 0.021 ng/mL
[2016-04-26] MEDS ORDERED: IPRATROPIUM/ALBUTEROL 0.5-2.5 MG/3 ML AMPUL NEB PRN (16:41)
--- NOTE | 2016-04-26 17:13 | PDOC PROGRESS REPORT ---
Subjective Progress Note for:: 04/26/16 Subjective:: Patient is seen on morning rounds. She is resting comfortably in bed. She remains on IV diltiazem drip. She remains in atrial fibrillation with controlled ventricular response in the 70s and 80s. She has a congested cough, but she said she's had for the last 10 days. Cough is been worsening. She was noted to have mild leukocytosis on admission and was started on empiric IV antibiotics. She has been receiving nebulizer treatments as well. She denies any chest pain, dyspnea, or dizziness. She denies any nausea, vomiting, or abdominal pain. She denies any other complaints the present time Physical Exam Vital Signs: Temp Pulse Resp BP Pulse Ox 97.7 F 88 26 H 139/70 H 100 04/26/16 15:44 04/26/16 15:44 04/26/16 15:44 04/26/16 15:44 04/26/16 15:44 Intake & Output 04/25/16 04/26/16 04/27/16 06:59 06:59 06:59 Weight 54.9 kg General appearance: PRESENT: no acute distress, well-developed, well-nourished Head exam: PRESENT: atraumatic, normocephalic Eye exam: PRESENT: conjunctiva pink, EOMI, PERRLA. ABSENT: scleral icterus Ear exam: PRESENT: normal external ear exam Mouth exam: PRESENT: moist, tongue midline Neck exam: ABSENT: carotid bruit, JVD, lymphadenopathy, thyromegaly Respiratory exam: PRESENT: rhonchi, symmetrical Cardiovascular exam: PRESENT: irregular rhythm, systolic murmur - 2/6 Pulses: PRESENT: normal dorsalis pedis pul Vascular exam: PRESENT: normal capillary refill GI/Abdominal exam: PRESENT: normal bowel sounds, soft. ABSENT: distended, guarding, mass, organolmegaly, rebound, tenderness Rectal exam: PRESENT: deferred Extremities exam: PRESENT: full ROM. ABSENT: calf tenderness, clubbing, pedal edema Neurological exam: PRESENT: alert, awake, oriented to person, oriented to place , oriented to time, oriented to situation, CN II-XII grossly intact. ABSENT: motor sensory deficit Psychiatric exam: PRESENT: appropriate affect, normal mood. ABSENT: homicidal ideation, suicidal ideation Skin exam: PRESENT: dry, intact, warm. ABSENT: cyanosis, rash Results Laboratory Results: 04/26/16 08:57 04/26/16 08:57 04/26/16 04/26/16 04/26/16 08:57 08:57 08:57 WBC 10.5 RBC 4.12 Hgb 11.4 L Hct 34.8 L MCV 84 MCH 27.6 MCHC 32.7 RDW 16.9 H Plt Count 251 Seg Neutrophils % 69.7 Lymphocytes % 19.4 Monocytes % 10.5 Eosinophils % 0.1 Basophils % 0.3 Absolute Neutrophils 7.3 Absolute Lymphocytes 2.0 Absolute Monocytes 1.1 Absolute Eosinophils 0.0 Absolute Basophils 0.0 Sodium 134.7 L Potassium 4.4 Chloride 95 L Carbon Dioxide 28 Anion Gap 12 BUN 16 Creatinine 0.53 Est GFR ( Amer) > 60 Est GFR (Non-Af Amer) > 60 Glucose 179 H Calcium 9.6 TSH 0.94 Free T4 1.32 Free T3 pg/mL 3.00 04/26/16 04/26/16 04/26/16 02:48 02:48 08:57 Creatine Kinase 58 64 CK-MB (CK-2) 2.45 Troponin I 0.023 04/26/16 04/26/16 04/26/16 08:57 13:50 13:50 Creatine Kinase 89 CK-MB (CK-2) 2.74 4.34 Troponin I 0.040 0.021 Impressions: Chest X-Ray 04/25/16 18:11 IMPRESSION: COPD. MILD CARDIOMEGALY. NO ACUTE RADIOGRAPHIC FINDING IN THE CHEST. Assessment & Plan - Diagnosis (1) Atrial fibrillation with RVR Is this a current diagnosis for this admission?: YesPlan: Controlled rate on IV diltiazem we will place back on Cardizem 180 twice a day and discontinue drip 2 hours later. Discussed with cardiology will also restart her clonidine twice a day (2) Obstructive chronic bronchitis with exacerbation Is this a current diagnosis for this admission?: YesPlan: Patient is receiving nebulizer treatments and IV broad-spectrum antibiotics (3) Anticoagulant long-term use Is this a current diagnosis for this admission?: YesPlan: Patient's presently on Coumadin with therapeutic INR (4) Hypertension Qualifiers: Hypertension type: essential hypertension Qualified Code(s): I10 - Essential (primary) hypertension Is this a current diagnosis for this admission?: YesPlan: Presently normotensive on current medication (5) Atrial fibrillation Qualifiers: Atrial fibrillation type: unspecified Qualified Code(s): I48.91 - Unspecified atrial fibrillation Is this a current diagnosis for this admission?: Yes (6) Hypothyroidism Qualifiers: Hypothyroidism type: acquired Qualified Code(s): E03.9 - Hypothyroidism, unspecified Is this a current diagnosis for this admission?: YesPlan: Continue medication (7) Coronary atherosclerosis Qualifiers: Coronary Disease-Associated Artery/Lesion type: [place] artery Associated angina: without angina Is this a current diagnosis for this admission?: YesPlan: Continue current medications - Time Time Spent with patient: 25-34 minutes Critical Time spent with patient: 15-24 minutes Medications reviewed and adjusted accordingly: Yes Anticipated discharge: Home
--- NOTE | 2016-04-26 18:09 | EKG REPORT ---
SEVERITY:- ABNORMAL ECG - ATRIAL FIBRILLATION, V-RATE 75-109 BORDERLINE T ABNORMALITIES, ANTERIOR LEADS : Confirmed by: Uri De La Rosa MD 26-Apr-2016 18:08:03
[2016-04-26] MEDS: MONTELUKAST SODIUM 10 MG TABLET PO SCH (21:59)
[2016-04-26] MEDS: DILTIAZEM HCL 180 MG CAPSULE.CR PO SCH (21:59)
[2016-04-26] MEDS: LEVOTHYROXINE SODIUM 0.075 MG TABLET PO SCH (22:00)
[2016-04-26] MEDS: WARFARIN SODIUM 4 MG TABLET PO SCH (22:00)
--- NOTE | 2016-04-26 22:58 | CONSULTATION REPORT E ---
Consultation Report NAME: MACO HERNANDEZ : 1925 AGE: 89Y DATE: 04/26/2016 301 A TO: DIANA COELLO M.D. FROM: ARTIS CASTREJON M.D. Requesting Physician REASON FOR CONSULTATION: Atrial fibrillation with rapid ventricular response and shortness of breath. HISTORY OF PRESENT ILLNESS: The patient is an 89-year-old female with a history of hypertension, diabetes mellitus type 2, hypothyroidism, and chronic atrial fibrillation, who states that recently she had some problems with her blood pressure and heart rate, and her clonidine and her Cardizem CD was halved to a dose of 180 mg p.o. daily. The patient has since the day prior to admission started having cough with increased wheezing and shortness of breath and productive cough of a very thick phlegm. She has a history of chronic bronchitis/COPD and states that at baseline she wheezes from time to time. She denies chest pain or discomfort. There is orthopnea but no PND. She did develop palpitations, and when she came in her heart rate was in the 150s, atrial fibrillation with uncontrolled ventricular response. Her chest x-ray showed some cardiomegaly without any evidence of heart failure or infiltrates. She denies any fever, chills, or rigors. There are no TIA or CVA symptoms. The patient is on chronic Coumadin therapy without any bleeding or TIA or CVA symptoms. Her INR done this admission has been therapeutic. PAST MEDICAL HISTORY: Positive for: 1. History of chronic atrial fibrillation. 2. History of coronary artery disease. No history of OR but history of coronary artery bypass graft surgery and history of stents x2. The vessels stented are not known and the number of bypasses not known. 3. She has a history of hypertension and hyperlipidemia. 4. She also has a history of asthma and chronic bronchitis/COPD. She states that she has never smoked, but she has been exposed to second-hand smoke. 5. She has no history of TIA or CVA. 6. She has a history of diabetes mellitus type 2 which is non-insulin dependent. 7. She also has a history of arthritis. At present, there are no acute symptoms of arthritis. 8. She also has a history of hypothyroidism. 9. She denies any history of chronic kidney disease. 10. She denies any history of seizures, headaches or migraines. She has no history of anxiety or depression. 11. She has a past history of anemia, and her hemoglobin this admission was 12.1 and 11.4. 12. There is no history of GI bleed. She has a history of GERD. PAST SURGICAL HISTORY: Positive for: 1. Cardiac catheterization. 2. Coronary artery bypass graft surgery. 3. History of coronary artery stents. 4. Hysterectomy. 5. section. 6. Orthopedic surgery of foot. 7. Tonsillectomy. 8. Hysterectomy. SOCIAL HISTORY: The patient has never smoked but has been around a lot of second-hand smoke at work. There is no history of EtOH abuse. DISPOSITION: The patient to me said she wants to be a DNR, but then I am not sure if she really means it, but she is a FULL CODE. Granddaughter is her healthcare [id number]. ALLERGIES: She is allergic to: 1. CELECOXIB. 2. SOLIFENACIN SUCCINATE. 3. SULFA. 4. TOLECTIN. FAMILY HISTORY: Positive for hypertension, diabetes mellitus, and coronary artery disease. MEDICATIONS: Include: 1. Lutein 6 mg p.o. daily. 2. Aspirin 81 mg p.o. daily. 3. Atorvastatin 10 mg p.o. daily at bedtime. 4. Calcium carbonate 500 mg p.o. daily. 5. Clonidine 0.1 mg p.o. q.8 h. 6. Dextrose glucose 40% gel 15 grams and 30 grams p.o. respectively hypoglycemia. 7. Dextrose 50% at 12.5 grams IV and 25 grams IV p.r.n. 8. Cardizem drip which is being tapered off, and she is being started on diltiazem 180 mg x1, and subsequently this will be changed to diltiazem 180 mg p.o. q.12 h. She is also on a Cardizem drip which has been discontinued. 9. Vasotec 1.25 mg IV x2. 10. Fluticasone propionate (Flonase) 2 sprays nasally q.12 h. p.r.n. 11. Glucagon 1 mg IM p.r.n. hypoglycemia. 12. Levaquin 750 mg IV piggyback daily. 13. Normal saline 250 mL IV bolus. 14. Insulin Levemir 10 units subcutaneously daily which has been started here as per the patient. 15. Accu-Chek before meals and at bedtime with sliding scale coverage with regular insulin. 16. Ipratropium albuterol sulfate 3 mL nebulizer treatment q.3 h. p.r.n. 17. Levothyroxine 0.075 mg p.o. at bedtime. 18. Losartan 100 mg p.o. daily. 19. Magnesium oxide 400 mg p.o. daily. 20. Metformin 500 mg p.o. b.i.d. before meals and at bedtime. 21. Singulair 10 mg p.o. at bedtime. 22. Multivitamin 1 tablet p.o. daily. 23. Nitroglycerin 1 tablet sublingual q.5 minutes p.r.n. 24. Braithwaite 3 acid (fish oil) 1 gram p.o. daily. 25. Zofran 4 mg IV q.8 h. p.r.n. 26. Warfarin (Coumadin) 4 mg p.o. daily. REVIEW OF SYSTEMS: CONSTITUTIONAL: Denies any fevers, chills, or rigors but complains of generalized fatigue and weakness. HEAD: Denies any headaches or head injury. EYES: No history of amblyopia or diplopia. No history of amaurosis fugax. EARS: No history of hearing loss. No history of tinnitus. No history of vertigo. NOSE: History of nasal allergies present. No history of hay fever. She has no history of nose bleeds. No history of nasal polyps. MOUTH: No history of altered taste sensation. No history of ulcers in the mouth. THROAT: There is no odynophagia or dysphagia. No history of recurrent sore throats. SKIN: There is no skin rash. There is no petechia or ecchymosis. She has a past history of skin cancer which has been removed with no recurrence. She has no pruritus. There is no yellowish discoloration to the skin. NECK: There is no neck swelling, painful or painless, and no goiter. LUNGS: She has a history of asthma/chronic bronchitis and at present presents with acute asthmatic bronchitis with wheezing and cough and sputum production. There is no history of sleep apnea. No history of pulmonary embolism. No history of hemoptysis. She has orthopnea. She says that she wheezes from time to time often. She has shortness of breath on walking just a few feet. She is not on any home oxygen. CARDIAC: History of hypertension. History of chronic atrial fibrillation. History of coronary artery bypass graft surgery, vessels unknown, and history of stents x2 in 2 vessels, vessels unknown. No history of angina since a long time. No history of myocardial infarction. There is no history of congestive heart failure. She has no leg edema. There is no PND. There is orthopnea. There is no syncope. Note that the patient a few weeks ago was admitted and was found to have bradycardia while asleep with a rate of 40 and good blood pressure and with no symptoms, and her diltiazem dose was decreased at that time. Also since her blood pressure was a little on the lower side as an outpatient, her clonidine was also decreased, and hence the patient says there is difficulty controlling her blood pressure. GASTROINTESTINAL: History of GERD present. No history of GI bleed. No history of peptic ulcer disease. No history of fatty food intolerance. No history of jaundice. No history of abdominal pain. RENAL: No history of chronic kidney disease. No history of symptoms of UTI. No history of hematuria, dysuria, pyuria. MUSCULOSKELETAL: History of arthritis, most likely rheumatoid arthritis since she does have some degree of gooseneck deformity of the fingers, but no acute inflammation of the joints. She has no history of scleroderma or lupus. CENTRAL NERVOUS SYSTEM: No history of CVA or TIA. No history of gait imbalance. No history of any headaches, migraines, or seizures. PSYCHIATRIC: No history of anxiety or depression. No history of suicidal ideation. HEMATOLOGICAL: No history of bleeding diathesis. No history of clotting disorders. No history of bleeding on Coumadin, and no history of clotting on Coumadin. There is a past history of anemia, but her hemoglobin seems to be reasonable now. ENDOCRINE: She has a history of diabetes mellitus type 2. She was not on insulin at home, but at present she is on insulin. She also has a history of hypothyroidism but without any head or cold intolerance. No history of polydipsia or polyuria. PHYSICAL EXAMINATION: GENERAL: The patient looks her stated age. She looks slightly malnourished. At present does have some degree of shortness of breath, but no major distress. VITAL SIGNS: She is afebrile with a temperature of 98.1 degrees Fahrenheit. The pulse is 86 beats per minute, irregularly irregular. Blood pressure is 111/93. The respirations are 18 per minute. O2 saturations are 97% on 2 liters nasal cannula. HEAD: Atraumatic/normocephalic. EYES: Pupils are equal, round, regular, reactive to light and accommodation. Extraocular movements are normal. There is no conjunctival pallor. There is no scleral icterus. EARS: Tympanic membranes are intact. External auditory canals are clear. NOSE: There is no deviated nasal septum. There is no nasal polyp. MOUTH: Mucous membranes of the mouth are moist. Tongue is moist. There are no ulcers in the mouth. There is no bleeding from the gums. THROAT: There is no redness of the oropharynx. There is no exudate. SKIN: There are no skin rashes. There is no petechia or ecchymosis. There are no skin lesions. NECK: Supple. There is no JVD. Carotids are equal. There is no bruit. There is no lymphadenopathy. There is no goiter. Trachea is central. LUNGS: Show bilateral rhonchi and wheezing, a few dry crackles and diminished air entry and prolonged expiration. There is hyperresonance on percussion. There are no rales of CHF. HEART: S1, S2 is heard. S1 is of variable intensity. There is no S3 gallop. There is no S4 gallop. There is a systolic murmur of mitral regurgitation heard in the apex with radiation to the left axilla. She does have a mild aortic stenosis murmur with preserved A2. She also has a murmur of tricuspid regurgitation. There is no rub. ABDOMEN: Soft, nontender. There is no hepatosplenomegaly. Bowel sounds are well heard. There are tender areas or masses. EXTREMITIES: Femorals are diminished. Leg pulses are diminished. There is no femoral bruit. There is no cyanosis or clubbing. There is no pedal edema. There is no DVT or cellulitis. CENTRAL NERVOUS SYSTEM: The patient is conscious, awake, alert, oriented x3 with no focal deficits. PSYCHIATRIC: The patient's judgement and insight are intact. Her affect is normal. DIAGNOSTIC DATA: Note that the patient had an echocardiography on April 11, 2016, and this showed that the patient had normal left ventricular chamber size. There was no LVH. The LV ejection fraction was greater than 60%, and LV diastolic pressure could not be assessed due to atrial fibrillation. The left ventricular wall motion was normal. The right ventricular systolic function was mildly reduced with mildly dilated right ventricle. There was moderate mitral annular calcification. There is mild to moderate aortic leaflet calcification. There is no evidence of mitral valve prolapse. There are no vegetations seen on the mitral valve leaflet. She has moderate amount of mitral regurgitation. There is mild aortic stenosis with a peak gradient of 19 mm. There is trace amount of aortic regurgitation. There is severe tricuspid regurgitation with a right ventricular systolic pressure of 63 to 66 mmHg with a RA mean of 12 to 15. There is no tricuspid stenosis. There is no pericardial effusion. The patient's chest x-ray shows no evidence of infiltrates or heart failure. There is mild cardiomegaly. There is no pleural effusion or pneumothorax. The patient's EKG on admission shows atrial fibrillation, ventricular response of 117 beats per minute, borderline T abnormalities in the inferior leads. Her EKG today shows atrial fibrillation with a heart rate of 93 beats per minute, borderline T abnormalities in the anterior leads. The patient's white count is 10,500, hemoglobin is 11.4, hematocrit is 34.8, and the platelet count is 231,000. The patient's ProTime is 25.4, INR is 2.20. The patient's sodium is 134.7, potassium 4.4, chloride is 95, CO2 is 28, the patient's creatinine is 0.93, EGFR is greater than 60, her glucose is 179. Her calcium is 9.6 and *------*. The patient's CPK-MB is negative. Cardiac enzymes have been negative x2 and indeterminate/negative on the third set. The patient's TSH is normal at 0.94, free T4 is 1.32, free T3 is 3.00. IMPRESSION: 1. Atrial fibrillation with rapid ventricular response. At present, ventricular response is reasonably controlled on current medication. History of chronic atrial fibrillation. Would recommend continuing the patient's Cardizem CD 180 mg p.o. b.i.d. and also continuing the patient's Coumadin with daily PT/INRs. 2. Acute asthmatic bronchitis. 3. Chronic bronchitis/COPD. 4. History of asthma. 5. Hypertension. 6. Diabetes mellitus type 2. The patient states that she is non-insulin dependent. 7. Severe pulmonary hypertension. 8. Severe tricuspid regurgitation. 9. Hypothyroidism. 10. Hyperlipidemia. 11. Arthritis. RECOMMENDATIONS: Would continue the patient at present on insulin and metformin, continue the patient on Levaquin and continue anti-COPD treatment as being done now. Will continue oxygen. Will also recommend continuing the patient's clonidine and her angiotensin-receptor blockade agent, that is losartan 100 mg p.o. daily. To me, it seems that the patient wants to be a DNR, but the patient has been listed as FULL CODE. Would recommend discussions with the patient as to whether she really wants to be a DNR or a full code. Note, 45 minutes spent on this patient including reviewing the patient's prior records, echocardiograms and discussions, and reviewing the patient's medications and advising management of her atrial fibrillation with the Coumadin and calcium channel blockers. Note, more than 50% of the time spent in direct patient care and also coordination of care with other physicians involved in the case after discussions. Will follow with you. DICTATING PHYSICIAN: DIANA COELLO M.D. [id number] [facility]#: [id number] ID: [id number] JOB#: [id number] ACCT: [id number] cc:DIANA COELLO M.D. >
[2016-04-27 03:55] LABS: APPEARANCE,URINE CLOUDY; BILIRUBIN,URINE NEGATIVE (NEGATIVE); GLUCOSE, URINE 150 mg/dL (NEGATIVE); KETONES,URINE NEGATIVE (NEGATIVE); LEUKOCYTE ESTERASE,URINE SMALL (NEGATIVE); NITRITE,URINE NEGATIVE (NEGATIVE); PROTEIN,URINE 100 mg/dL (NEGATIVE); UROBILINOGEN,URINE NEGATIVE mg/dL (<2.0)
[2016-04-27] MEDS ORDERED: CLONIDINE HCL 0.1 MG TABLET PO ONE (04:45)
[2016-04-27] MEDS ORDERED: DILTIAZEM HCL 90 MG TABLET PO ONE (04:45)
[2016-04-27 04:51] LABS: HEMATOCRIT 34.5 % (36.0-47.0); HEMOGLOBIN 11.4 g/dL (12.0-15.5); HGB HCT DIFFERENCE -0.3; MEAN CORPUSCULAR HEMOGLOBIN 27.6 pg (27.0-33.4); MEAN CORPUSCULAR HGB CONC 32.9 g/dL (32.0-36.0); MEAN CORPUSCULAR VOLUME 84 fl (80-97); RED BLOOD COUNT 4.12 10^6/uL (3.72-5.28); RED CELL DISTRIBUTION WIDTH 16.4 % (11.5-14.0); WHITE BLOOD COUNT 14.8 10^3/uL (4.0-10.5)
[2016-04-27 05:08] LABS: PROTHROMBIN TIME 19.9 SEC (11.4-15.4)
[2016-04-27 05:14] LABS: ANION GAP 12 (5-19); BLOOD UREA NITROGEN 18 mg/dL (7-20); CALCIUM 9.6 mg/dL (8.4-10.2); CARBON DIOXIDE 28 mmol/L (22-30); CHLORIDE 92 mmol/L (98-107); CREATININE RESULT 0.47 mg/dL (0.52-1.25); GLUCOSE 148 mg/dL (75-110); POTASSIUM 4.1 mmol/L (3.6-5.0)
[2016-04-27] MEDS: CLONIDINE HCL 0.1 MG TABLET PO SCH ×3 (05:55→21:47)
[2016-04-27] MEDS ORDERED: DILTIAZEM HCL 180 MG CAPSULE.CR PO ONE (06:00)
[2016-04-27] MEDS: IPRATROPIUM/ALBUTEROL 0.5-2.5 MG/3 ML AMPUL NEB SCH ×2 (07:30→13:42)
[2016-04-27] MEDS: INSULIN DETEMIR 100 UNIT/ML 3 ML PEN SUBCUT SCH (09:10)
[2016-04-27] MEDS: LEVOFLOXACIN 750 MG/D5W RTU 750 MG/150 ML RTUPB IV SCH (09:11)
[2016-04-27] MEDS: METFORMIN HCL 500 MG TABLET PO SCH ×2 (09:12→15:59)
[2016-04-27] MEDS: OMEGA-3 ACID ETHYL ESTERS 1 GM CAPSULE PO SCH (09:12)
[2016-04-27] MEDS: CALCIUM CARBONATE 500 MG TABLET PO SCH (09:12)
[2016-04-27] MEDS: ASPIRIN 81 MG TABLET, CHEWABLE PO SCH (09:13)
[2016-04-27] MEDS: MAGNESIUM OXIDE 400 MG TABLET PO SCH (09:13)
[2016-04-27] MEDS: LOSARTAN POTASSIUM 50 MG TABLET PO SCH (09:13)
[2016-04-27] MEDS: DILTIAZEM HCL 180 MG CAPSULE.CR PO SCH ×2 (09:14→21:47)
[2016-04-27] MEDS: MULTIVITAMIN TABLET PO SCH (09:14)
--- NOTE | 2016-04-27 10:06 | PDOC PROGRESS REPORT ---
Subjective Progress Note for:: 04/27/16 Subjective:: Patient seems to be doing better with gradual improvement. Pt is denying any chest arm or neck discomfort. Patient denying any PND, orthopnea. Patient denied any sustained palpitations, dizziness, syncope, near syncope. Patient denying any fever chills. Patient denying any other significant discomfort. Patient is maintaining atrial fibrillation. Heart rate slightly increased in the morning but now stable. Review of systems: Rest review of systems negative. Medications: Medications have been reviewed. Physical Exam Vital Signs: Temp Pulse Resp BP Pulse Ox 98.5 F 78 19 106/62 99 04/27/16 08:00 04/27/16 08:00 04/27/16 08:00 04/27/16 08:00 04/27/16 08:00 Intake & Output 04/26/16 04/27/16 04/28/16 06:59 06:59 06:59 Intake Total 1810 Balance 1810 Weight 57.6 kg Exam: GENERAL: well-nourished and in no acute distress. Alert and oriented x3 HEAD: Atraumatic, normocephalic. EYES: Pupils equal round and reactive to light, extraocular movements intact, sclera anicteric, conjunctiva are normal. ENT: TMs normal, nares patent, oropharynx clear without exudates. Moist mucous membranes. No oral ulcerations or bleeding gums noted NECK: supple without lymphadenopathy. Trachea is central. No cervical or axillary lymphadenopathy noted. Carotids are 2+, JVD WNL LUNGS: Respiration seems nonlabored, no significant accessory muscle action noted. Bilateral wheezes rales or rhonchi noted. Bibasal fine crackles noted. No significant dullness noted on percussion. CHEST: Palpation of the chest wall shows no significant chest wall tenderness or abnormalities. 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 ABDOMEN: Soft, no significant tenderness appreciated, normoactive bowel sounds. No guarding, no rebound. No rigidity noted . No masses appreciated. EXTREMITIES: Pedal pulses are 1-2+, no calf tenderness noted. No clubbing or cyanosis.trace to 1+ pedal edema noted NEUROLOGICAL: Focused neurological exam showed no significant neurologic deficit. Normal speech, no focal weakness appreciated. PSYCH: Normal mood, normal affect. Judgment and insight within normal limits. SKIN: No significant ecchymosis, rash, ulcerations or signs of pruritus noted. MUSCULOSKELETAL EXAM: No significant joint swelling noted. Results Laboratory Results: 04/27/16 03:45 04/27/16 03:45 04/26/16 04/26/16 04/27/16 08:57 08:57 03:33 WBC RBC Hgb Hct MCV MCH MCHC RDW Plt Count Sodium 134.7 L Potassium 4.4 Chloride 95 L Carbon Dioxide 28 Anion Gap 12 BUN 16 Creatinine 0.53 Est GFR ( Amer) > 60 Est GFR (Non-Af Amer) > 60 Glucose 179 H Calcium 9.6 TSH 0.94 Free T4 1.32 Free T3 pg/mL 3.00 Urine Color YELLOW Urine Appearance CLOUDY Urine pH 7.0 Ur Specific [place] 1.020 Urine Protein 100 H Urine Glucose (UA) 150 H Urine Ketones NEGATIVE Urine Blood NEGATIVE Urine Nitrite NEGATIVE Ur Leukocyte Esterase SMALL H Urine WBC (Auto) 21 Urine RBC (Auto) 6 04/27/16 04/27/16 03:45 03:45 WBC 14.8 H RBC 4.12 Hgb 11.4 L Hct 34.5 L MCV 84 MCH 27.6 MCHC 32.9 RDW 16.4 H Plt Count 219 Sodium 132.0 L Potassium 4.1 Chloride 92 L Carbon Dioxide 28 Anion Gap 12 BUN 18 Creatinine 0.47 L Est GFR ( Amer) > 60 Est GFR (Non-Af Amer) > 60 Glucose 148 H Calcium 9.6 TSH Free T4 Free T3 pg/mL Urine Color Urine Appearance Urine pH Ur Specific [place] Urine Protein Urine Glucose (UA) Urine Ketones Urine Blood Urine Nitrite Ur Leukocyte Esterase Urine WBC (Auto) Urine RBC (Auto) 04/26/16 04/26/16 04/26/16 02:48 02:48 08:57 Creatine Kinase 58 64 CK-MB (CK-2) 2.45 Troponin I 0.023 04/26/16 04/26/16 04/26/16 08:57 13:50 13:50 Creatine Kinase 89 CK-MB (CK-2) 2.74 4.34 Troponin I 0.040 0.021 Impressions: Chest X-Ray 04/25/16 18:11 IMPRESSION: COPD. MILD CARDIOMEGALY. NO ACUTE RADIOGRAPHIC FINDING IN THE CHEST. 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 Is this a current diagnosis for this admission?: Yes (3) Congestive heart failure Qualifiers: Congestive heart failure type: diastolic Is this a current diagnosis for this admission?: Yes (4) Hyperlipidemia Qualifiers: Hyperlipidemia type: other hyperlipidemia Qualified Code(s): E78.4 - Other hyperlipidemia Is this a current diagnosis for this admission?: Yes (6) Mitral regurgitation Qualifiers: Cardiac valve disease etiology: etiology unspecified Qualified Code( s): I34.0 - Nonrheumatic mitral (valve) insufficiency Is this a current diagnosis for this admission?: Yes - Notes Notes: Atrial fibrillation: Rate seems well controlled on current dose of Cardizem. Continue chronic anticoagulation. Diabetes: Recommend good control of blood sugar. However should avoid any hypoglycemia. Patient being expertly managed by primary care [place]. Dyslipidemia:Patient noted to have dyslipidemia. LDL goal is less than 70. Recommend statin therapy at least intermediate or high dose, of high potency status. Periodic lipid panel and liver panel is indicated. Patient to report any significant muscle discomfort or other side effects. CHF: Diastolic. Most likely related to atrial fibrillation. Currently compensated. Continue current management plans with salt and fluid restriction. Coronary artery disease:CAD: Patient has CAD. Currently stable without any angina or angina equivalent symptoms. Discussed symptoms associated with unstable angina, acute coronary syndrome, myocardial infarction etc.aggressive risk factor modification advised. Mitral regurgitation: Moderate based on prior echocardiogram. Patient may need periodic follow-up. - Time Time with patient: Greater than 35 minutes - CODE STATUS was discussed, patient remains full code. Surrogate decision-maker unchanged. Multiple medical problems were addressed.More than 50% of the time spent coordinating care, discussing management plans with involved caregivers. Management plans discussed with involved personnels. Medical decision making was of moderate complexity. Chart reviewed medications: reviewed previous cardiac evaluation reviewed with the patient
[2016-04-27] MEDS ORDERED: LEVALBUTEROL HCL NEB 1.25 MG/3 ML AMPUL NEB SCH (14:00)
[2016-04-27] MEDS ORDERED: GUAIFENESIN 600 MG TABLET.SA PO ONE (15:00)
[2016-04-27] MEDS: LEVALBUTEROL HCL NEB 1.25 MG/3 ML AMPUL NEB SCH (16:04)
--- NOTE | 2016-04-27 16:05 | PDOC PROGRESS REPORT ---
Subjective Progress Note for:: 04/27/16 Subjective:: The patient was seen earlier today on rounds. The patient states that she is fatigued and quite short of breath at times. is admitted producing some sputum. The patient denies any nausea, vomiting, diarrhea, dizziness, chest pain, heart palpitations, fevers, or chills. The patient has remained afebrile. Blood pressures have been in a good range. When prompted the patient voices no other concerns at this time. Review of systems: The rest of the review of systems is negative. Physical Exam Vital Signs: Temp Pulse Resp BP Pulse Ox 97.8 F 79 18 114/89 H 98 04/27/16 11:32 04/27/16 13:42 04/27/16 13:42 04/27/16 11:32 04/27/16 13:42 Intake & Output 04/25/16 04/26/16 04/27/16 23:59 23:59 23:59 Intake Total 951 1613 Output Total 200 Balance 951 1413 Weight 54.9 kg 57.6 kg General appearance: PRESENT: no acute distress, cooperative, well-developed, well-nourished Head exam: PRESENT: atraumatic, normocephalic Eye exam: PRESENT: conjunctiva pink, EOMI, PERRLA. ABSENT: scleral icterus Ear exam: PRESENT: normal external ear exam Mouth exam: PRESENT: moist, tongue midline Neck exam: ABSENT: carotid bruit, JVD, lymphadenopathy, thyromegaly Respiratory exam: PRESENT: rhonchi, symmetrical, tachypnea, wheezes. ABSENT: rales, unlabored Cardiovascular exam: PRESENT: irregular rhythm. ABSENT: diastolic murmur, rubs , systolic murmur Pulses: PRESENT: normal dorsalis pedis pul Vascular exam: PRESENT: normal capillary refill GI/Abdominal exam: PRESENT: normal bowel sounds, soft. ABSENT: distended, guarding, mass, organolmegaly, rebound, tenderness Rectal exam: PRESENT: deferred Extremities exam: PRESENT: full ROM. ABSENT: calf tenderness, clubbing, pedal edema Neurological exam: PRESENT: alert, awake, oriented to person, oriented to place , oriented to time, oriented to situation, CN II-XII grossly intact. ABSENT: motor sensory deficit Psychiatric exam: PRESENT: appropriate affect, normal mood. ABSENT: homicidal ideation, suicidal ideation Skin exam: PRESENT: dry, intact, warm. ABSENT: cyanosis, rash Results Laboratory Results: 04/27/16 03:45 04/27/16 03:45 04/27/16 04/27/16 04/27/16 03:33 03:45 03:45 WBC 14.8 H RBC 4.12 Hgb 11.4 L Hct 34.5 L MCV 84 MCH 27.6 MCHC 32.9 RDW 16.4 H Plt Count 219 Sodium 132.0 L Potassium 4.1 Chloride 92 L Carbon Dioxide 28 Anion Gap 12 BUN 18 Creatinine 0.47 L Est GFR ( Amer) > 60 Est GFR (Non-Af Amer) > 60 Glucose 148 H Calcium 9.6 Urine Color YELLOW Urine Appearance CLOUDY Urine pH 7.0 Ur Specific Anderson 1.020 Urine Protein 100 H Urine Glucose (UA) 150 H Urine Ketones NEGATIVE Urine Blood NEGATIVE Urine Nitrite NEGATIVE Ur Leukocyte Esterase SMALL H Urine WBC (Auto) 21 Urine RBC (Auto) 6 04/26/16 04/26/16 04/26/16 02:48 02:48 08:57 Creatine Kinase 58 64 CK-MB (CK-2) 2.45 Troponin I 0.023 04/26/16 04/26/16 04/26/16 08:57 13:50 13:50 Creatine Kinase 89 CK-MB (CK-2) 2.74 4.34 Troponin I 0.040 0.021 Impressions: Chest X-Ray 04/25/16 18:11 IMPRESSION: COPD. MILD CARDIOMEGALY. NO ACUTE RADIOGRAPHIC FINDING IN THE CHEST. Assessment & Plan - Diagnosis (1) Acute bronchitis Qualifiers: Bronchitis organism: unspecified organism Qualified Code(s): J20.9 - Acute bronchitis, unspecified Is this a current diagnosis for this admission?: YesPlan: Will obtain chest x-rays the patient is now producing sputum. Will add Mucinex and incentive spirometry as well as flutter valve. Will transition to by mouth Levaquin. (2) Atrial fibrillation with RVR Is this a current diagnosis for this admission?: YesPlan: Patient did require dose of Cardizem overnight. Will continue current medications and transition meds. Decrease Nebs interval. Do appreciate cardiology input. (3) Acute on chronic diastolic (congestive) heart failure Is this a current diagnosis for this admission?: YesPlan: Patient has underlying valvular disease. Will give the patient a dose of Lasix. Do appreciate cardiology input with this. Most likely secondary to #2 (4) Coronary artery disease Is this a current diagnosis for this admission?: No (5) Mitral regurgitation Qualifiers: Cardiac valve disease etiology: etiology unspecified Qualified Code( s): I34.0 - Nonrheumatic mitral (valve) insufficiency Is this a current diagnosis for this admission?: Yes (6) Hyperlipidemia Qualifiers: Hyperlipidemia type: other hyperlipidemia Qualified Code(s): E78.4 - Other hyperlipidemia Is this a current diagnosis for this admission?: Yes (7) Hypertension Qualifiers: Hypertension type: essential hypertension Qualified Code(s): I10 - Essential (primary) hypertension Is this a current diagnosis for this admission?: Yes (8) Hypothyroidism Qualifiers: Hypothyroidism type: acquired Qualified Code(s): E03.9 - Hypothyroidism, unspecified Is this a current diagnosis for this admission?: Yes (9) Supratherapeutic INR Is this a current diagnosis for this admission?: No (10) Coronary atherosclerosis Qualifiers: Coronary Disease-Associated Artery/Lesion type: [place] artery Associated angina: without angina Is this a current diagnosis for this admission?: YesPlan: Will continue home medications (11) Stented coronary artery Is this a current diagnosis for this admission?: Yes (12) Anticoagulant long-term use Is this a current diagnosis for this admission?: Yes - Time Time Spent with patient: 25-34 minutes Medications reviewed and adjusted accordingly: Yes
[2016-04-27] MEDS ORDERED: FUROSEMIDE INJ/PF 40 MG/4 ML SDV IV ONE (16:30)
[2016-04-27] MEDS: MONTELUKAST SODIUM 10 MG TABLET PO SCH (21:47)
[2016-04-27] MEDS: GUAIFENESIN 600 MG TABLET.SA PO SCH (21:47)
[2016-04-27] MEDS: LEVOTHYROXINE SODIUM 0.075 MG TABLET PO SCH (21:47)
[2016-04-27] MEDS: ATORVASTATIN CALCIUM 10 MG TABLET PO SCH (21:47)
[2016-04-27] MEDS: WARFARIN SODIUM 4 MG TABLET PO SCH (21:47)
[2016-04-27] MEDS: LEVALBUTEROL HCL NEB 0.63 MG/3 ML AMPUL NEB PRN (22:01)
[2016-04-28] MEDS: LEVALBUTEROL HCL NEB 1.25 MG/3 ML AMPUL NEB SCH ×3 (00:07→15:36)
[2016-04-28 04:55] LABS: PROTHROMBIN TIME 21.1 SEC (11.4-15.4)
[2016-04-28 05:11] LABS: ANION GAP 12 (5-19); BLOOD UREA NITROGEN 14 mg/dL (7-20); CALCIUM 9.1 mg/dL (8.4-10.2); CARBON DIOXIDE 29 mmol/L (22-30); CHLORIDE 85 mmol/L (98-107); CREATININE RESULT 0.58 mg/dL (0.52-1.25); GLUCOSE 176 mg/dL (75-110); MAGNESIUM 1.4 mg/dL (1.6-2.3); POTASSIUM 3.8 mmol/L (3.6-5.0)
[2016-04-28] MEDS: CLONIDINE HCL 0.1 MG TABLET PO SCH ×3 (07:17→21:38)
[2016-04-28] MEDS: METFORMIN HCL 500 MG TABLET PO SCH ×2 (08:35→15:12)
[2016-04-28] MEDS: INSULIN LISPRO 100 UNIT/ML 3 ML VIAL SUBCUT PRN (08:37)
[2016-04-28] MEDS: INSULIN DETEMIR 100 UNIT/ML 3 ML PEN SUBCUT SCH (09:53)
[2016-04-28] MEDS: LOSARTAN POTASSIUM 50 MG TABLET PO SCH (09:54)
[2016-04-28] MEDS: ASPIRIN 81 MG TABLET, CHEWABLE PO SCH (09:54)
[2016-04-28] MEDS: MULTIVITAMIN TABLET PO SCH (09:54)
[2016-04-28] MEDS: MAGNESIUM OXIDE 400 MG TABLET PO SCH (09:55)
[2016-04-28] MEDS: OMEGA-3 ACID ETHYL ESTERS 1 GM CAPSULE PO SCH (09:55)
[2016-04-28] MEDS: CALCIUM CARBONATE 500 MG TABLET PO SCH (09:55)
[2016-04-28] MEDS: LEVOFLOXACIN 500 MG TABLET PO SCH (09:55)
[2016-04-28] MEDS: DILTIAZEM HCL 180 MG CAPSULE.CR PO SCH ×2 (09:56→21:38)
[2016-04-28] MEDS: GUAIFENESIN 600 MG TABLET.SA PO SCH ×2 (09:56→21:38)
--- NOTE | 2016-04-28 10:42 | PDOC PROGRESS REPORT ---
Subjective Progress Note for:: 04/28/16 Subjective:: Patient seems to be doing better with gradual improvement. Pt is denying any chest arm or neck discomfort. Patient denying any PND, orthopnea. Patient denied any sustained palpitations, dizziness, syncope, near syncope. Patient denying any fever chills. Patient denying any other significant discomfort. Patient is maintaining atrial fibrillation. Patient noted to be resting comfortably but is noted to have increased wheezing. Review of systems: Rest review of systems negative. Medications: Medications have been reviewed. Physical Exam Vital Signs: Temp Pulse Resp BP Pulse Ox 97.8 F 94 19 120/77 97 04/28/16 07:18 04/28/16 07:18 04/28/16 07:18 04/28/16 07:18 04/28/16 07:18 Intake & Output 04/27/16 04/28/16 04/29/16 06:59 06:59 06:59 Intake Total 1810 1754 Output Total 1025 Balance 1810 729 Weight 57.6 kg 57.2 kg Exam: GENERAL: well-nourished and in no acute distress. Alert and oriented x3 HEAD: Atraumatic, normocephalic. EYES: Pupils equal round and reactive to light, extraocular movements intact, sclera anicteric, conjunctiva are normal. ENT: TMs normal, nares patent, oropharynx clear without exudates. Moist mucous membranes. No oral ulcerations or bleeding gums noted NECK: supple without lymphadenopathy. Trachea is central. No cervical or axillary lymphadenopathy noted. Carotids are 2+, JVD WNL LUNGS: Respiration seems nonlabored, no significant accessory muscle action noted. Bilateral fine crackles along with wheezes rales or rhonchi noted. No significant dullness noted on percussion. CHEST: Palpation of the chest wall shows no significant chest wall tenderness or abnormalities. 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 ABDOMEN: Soft, no significant tenderness appreciated, normoactive bowel sounds. No guarding, no rebound. No rigidity noted . No masses appreciated. EXTREMITIES: Pedal pulses are 1-2+, no calf tenderness noted. No clubbing or cyanosis.trace to 1+ pedal edema noted NEUROLOGICAL: Focused neurological exam showed no significant neurologic deficit. Normal speech, no focal weakness appreciated. PSYCH: Normal mood, normal affect. Judgment and insight within normal limits. SKIN: No significant ecchymosis, rash, ulcerations or signs of pruritus noted. MUSCULOSKELETAL EXAM: No significant joint swelling noted. Results Laboratory Results: 04/27/16 03:45 04/28/16 03:49 04/28/16 03:49 Sodium 126.0 L Potassium 3.8 Chloride 85 L Carbon Dioxide 29 Anion Gap 12 BUN 14 Creatinine 0.58 Est GFR ( Amer) > 60 Est GFR (Non-Af Amer) > 60 Glucose 176 H Calcium 9.1 Magnesium 1.4 L 04/26/16 04/26/16 04/26/16 02:48 02:48 08:57 Creatine Kinase 58 64 CK-MB (CK-2) 2.45 Troponin I 0.023 04/26/16 04/26/16 04/26/16 08:57 13:50 13:50 Creatine Kinase 89 CK-MB (CK-2) 2.74 4.34 Troponin I 0.040 0.021 Impressions: Chest X-Ray 04/27/16 00:00 IMPRESSION: NO ACUTE CARDIOPULMONARY PROCESS. NO SIGNIFICANT CHANGE FROM PRIOR STUDY. Status: Image reviewed by me - Showed significant COPD findings possible underlying pulmonary fibrosis cannot rule out CHF. Assessment & Plan - Diagnosis (1) Atrial fibrillation Qualifiers: Atrial fibrillation type: persistent Qualified Code(s): I48.1 - Persistent atrial fibrillation Is this a current diagnosis for this admission?: Yes (2) Diabetes Qualifiers: Diabetes mellitus type: type 2 Diabetes mellitus complication status: with unspecified complications Diabetes mellitus long term care pharmacist insulin use: unspecified long term care pharmacist insulin use status Qualified Code(s): E11.8 - Type 2 diabetes mellitus with unspecified complications; Z79.4 - halfway (current) use of insulin Is this a current diagnosis for this admission?: Yes (3) Congestive heart failure Qualifiers: Congestive heart failure type: diastolic Is this a current diagnosis for this admission?: Yes (4) Hyperlipidemia Qualifiers: Hyperlipidemia type: other hyperlipidemia Qualified Code(s): E78.4 - Other hyperlipidemia Is this a current diagnosis for this admission?: Yes (5) Coronary artery disease Is this a current diagnosis for this admission?: No (6) Mitral regurgitation Qualifiers: Cardiac valve disease etiology: etiology unspecified Qualified Code( s): I34.0 - Nonrheumatic mitral (valve) insufficiency Is this a current diagnosis for this admission?: Yes - Notes Notes: Atrial fibrillation: Rate seems well controlled on current dose of Cardizem. Continue chronic anticoagulation. Diabetes: Recommend good control of blood sugar. However should avoid any hypoglycemia. Patient being expertly managed by primary care MNancy Dyslipidemia:Patient noted to have dyslipidemia. LDL goal is less than 70. Recommend statin therapy at least intermediate or high dose, of high potency status. Periodic lipid panel and liver panel is indicated. Patient to report any significant muscle discomfort or other side effects. CHF: Diastolic. Most likely related to atrial fibrillation. Currently compensated. Continue current management plans with salt and fluid restriction. Will order and BNP today. We may need to increased diuretic therapy. Coronary artery disease:CAD: Patient has CAD. Currently stable without any angina or angina equivalent symptoms. Discussed symptoms associated with unstable angina, acute coronary syndrome, myocardial infarction etc.aggressive risk factor modification advised. Mitral regurgitation: Moderate based on prior echocardiogram. Patient may need periodic follow-up. - Time Time with patient: 15-25 minutes - CODE STATUS was discussed, patient remains full code. Surrogate decision-maker unchanged. Multiple medical problems were addressed.More than 50% of the time spent coordinating care, discussing management plans with involved caregivers. Management plans discussed with involved personnels. Medical decision making was of moderate complexity.
--- NOTE | 2016-04-28 11:56 | PDOC PROGRESS REPORT ---
Subjective Progress Note for:: 04/28/16 Subjective:: Patient is seen on morning rounds. She is resting comfortably in bed. She remains in atrial fibrillation with controlled ventricular response in the 70s and 80s. She has a congested cough, but she said she's had for the last 10 days. She believes cough is improved. She has continued wheezing. She was noted to have mild leukocytosis on admission and was started on empiric IV antibiotics. She has been receiving nebulizer treatments as well. She denies any chest pain, dyspnea, or dizziness. She denies any nausea, vomiting, or abdominal pain. She denies any other complaints the present time Physical Exam Vital Signs: Temp Pulse Resp BP Pulse Ox 97.8 F 94 19 120/77 97 04/28/16 07:18 04/28/16 07:18 04/28/16 07:18 04/28/16 07:18 04/28/16 07:18 Intake & Output 04/27/16 04/28/16 04/29/16 06:59 06:59 06:59 Intake Total 1810 1754 Output Total 1025 Balance 1810 729 Weight 57.6 kg 57.2 kg General appearance: PRESENT: no acute distress, well-developed, well-nourished Head exam: PRESENT: atraumatic, normocephalic Eye exam: PRESENT: conjunctival injection Ear exam: PRESENT: bleeding Mouth exam: PRESENT: moist, tongue midline Neck exam: ABSENT: carotid bruit, JVD, lymphadenopathy, thyromegaly Respiratory exam: PRESENT: symmetrical, unlabored - expiratory wheezing bilaterally, wheezes Cardiovascular exam: PRESENT: RRR. ABSENT: diastolic murmur, rubs, systolic murmur Pulses: PRESENT: normal dorsalis pedis pul Vascular exam: PRESENT: normal capillary refill GI/Abdominal exam: PRESENT: normal bowel sounds, soft. ABSENT: distended, guarding, mass, organolmegaly, rebound, tenderness Rectal exam: PRESENT: deferred Extremities exam: PRESENT: full ROM. ABSENT: calf tenderness, clubbing, pedal edema Neurological exam: PRESENT: alert, awake, oriented to person, oriented to place , oriented to time, oriented to situation, CN II-XII grossly intact. ABSENT: motor sensory deficit Psychiatric exam: PRESENT: appropriate affect, normal mood. ABSENT: homicidal ideation, suicidal ideation Skin exam: PRESENT: dry, intact, warm. ABSENT: cyanosis, rash Results Laboratory Results: 04/27/16 03:45 04/28/16 03:49 04/28/16 03:49 Sodium 126.0 L Potassium 3.8 Chloride 85 L Carbon Dioxide 29 Anion Gap 12 BUN 14 Creatinine 0.58 Est GFR ( Amer) > 60 Est GFR (Non-Af Amer) > 60 Glucose 176 H Calcium 9.1 Magnesium 1.4 L 04/26/16 04/26/16 04/26/16 02:48 02:48 08:57 Creatine Kinase 58 64 CK-MB (CK-2) 2.45 Troponin I 0.023 04/26/16 04/26/16 04/26/16 08:57 13:50 13:50 Creatine Kinase 89 CK-MB (CK-2) 2.74 4.34 Troponin I 0.040 0.021 Impressions: Chest X-Ray 04/27/16 00:00 IMPRESSION: NO ACUTE CARDIOPULMONARY PROCESS. NO SIGNIFICANT CHANGE FROM PRIOR STUDY. Assessment & Plan - Diagnosis (1) Atrial fibrillation with RVR Is this a current diagnosis for this admission?: YesPlan: Rate controlled on cardiazem and clonidine (2) Obstructive chronic bronchitis with exacerbation Is this a current diagnosis for this admission?: YesPlan: Patient is receiving nebulizer treatments and IV broad-spectrum antibiotics. She continues to have wheezing but feels cough is somewhat better. Will place on Advair d/c pulmicort nebulizers (3) Anticoagulant long-term use Is this a current diagnosis for this admission?: YesPlan: Patient's presently on Coumadin with therapeutic INR (4) Hypertension Qualifiers: Hypertension type: essential hypertension Qualified Code(s): I10 - Essential (primary) hypertension Is this a current diagnosis for this admission?: YesPlan: Presently normotensive on current medication (5) Hypothyroidism Qualifiers: Hypothyroidism type: acquired Qualified Code(s): E03.9 - Hypothyroidism, unspecified Is this a current diagnosis for this admission?: YesPlan: Continue medication (6) Coronary atherosclerosis Qualifiers: Coronary Disease-Associated Artery/Lesion type: [place] artery Associated angina: without angina Is this a current diagnosis for this admission?: YesPlan: Continue current medications - Time Time Spent with patient: 25-34 minutes Critical Time spent with patient: 15-24 minutes
[2016-04-28] MEDS: WARFARIN SODIUM 4 MG TABLET PO SCH (21:38)
[2016-04-28] MEDS: LEVOTHYROXINE SODIUM 0.075 MG TABLET PO SCH (21:38)
[2016-04-28] MEDS: MONTELUKAST SODIUM 10 MG TABLET PO SCH (21:38)
[2016-04-28] MEDS: ATORVASTATIN CALCIUM 10 MG TABLET PO SCH (21:38)
[2016-04-29] MEDS: LEVALBUTEROL HCL NEB 1.25 MG/3 ML AMPUL NEB SCH ×3 (01:08→15:49)
[2016-04-29 05:37] LABS: ANION GAP 10 (5-19); BLOOD UREA NITROGEN 13 mg/dL (7-20); CARBON DIOXIDE 27 mmol/L (22-30); CHLORIDE 86 mmol/L (98-107); CREATININE RESULT 0.54 mg/dL (0.52-1.25); GLUCOSE 135 mg/dL (75-110); POTASSIUM 3.7 mmol/L (3.6-5.0); SODIUM 123.4 mmol/L (137-145)
[2016-04-29] MEDS: LEVALBUTEROL HCL NEB 0.63 MG/3 ML AMPUL NEB PRN (07:56)
[2016-04-29] MEDS: CLONIDINE HCL 0.1 MG TABLET PO SCH ×3 (08:11→21:23)
[2016-04-29] MEDS: METFORMIN HCL 500 MG TABLET PO SCH ×2 (08:11→17:05)
[2016-04-29] MEDS: INSULIN LISPRO 100 UNIT/ML 3 ML VIAL SUBCUT PRN (08:15)
[2016-04-29] MEDS: MAGNESIUM OXIDE 400 MG TABLET PO SCH (10:04)
[2016-04-29] MEDS: INSULIN DETEMIR 100 UNIT/ML 3 ML PEN SUBCUT SCH (10:04)
[2016-04-29] MEDS: GUAIFENESIN 600 MG TABLET.SA PO SCH ×2 (10:04→21:24)
[2016-04-29] MEDS: OMEGA-3 ACID ETHYL ESTERS 1 GM CAPSULE PO SCH (10:04)
[2016-04-29] MEDS: CALCIUM CARBONATE 500 MG TABLET PO SCH (10:05)
[2016-04-29] MEDS: LOSARTAN POTASSIUM 50 MG TABLET PO SCH (10:05)
[2016-04-29] MEDS: MULTIVITAMIN TABLET PO SCH (10:05)
[2016-04-29] MEDS: ASPIRIN 81 MG TABLET, CHEWABLE PO SCH (10:05)
[2016-04-29] MEDS: LEVOFLOXACIN 500 MG TABLET PO SCH (10:05)
[2016-04-29] MEDS: DILTIAZEM HCL 180 MG CAPSULE.CR PO SCH ×2 (10:06→21:23)
[2016-04-29] MEDS ORDERED: FLUTICASONE NASAL SPRAY 50 MCG/SPRY 120 SPRAY/16 GM NASL ONE (10:43)
[2016-04-29] MEDS ORDERED: CETIRIZINE 10 MG TABLET PO ONE ×2 (10:44→14:00)
--- NOTE | 2016-04-29 12:55 | PDOC PROGRESS REPORT ---
Subjective Progress Note for:: 04/29/16 Subjective:: The patient was seen earlier today on rounds. The patient states that she is fatigued but her shortness of breath has improved in comparison to yesterday. The patient has admitted producing some sputum. The patient denies any nausea, vomiting, diarrhea, dizziness, chest pain, heart palpitations, fevers, or chills. The patient has remained afebrile. Blood pressures have been in a good range. When prompted the patient voices no other concerns at this time. Review of systems: The rest of the review of systems is negative. Physical Exam Vital Signs: Temp Pulse Resp BP Pulse Ox 98.1 F 65 19 124/54 L 96 04/29/16 11:53 04/29/16 11:53 04/29/16 11:53 04/29/16 11:53 04/29/16 11:53 Intake & Output 04/27/16 04/28/16 04/29/16 23:59 23:59 23:59 Intake Total 2263 1087 1609 Output Total 200 825 Balance 2063 262 1609 Weight 57.6 kg 57.2 kg 57.4 kg General appearance: PRESENT: no acute distress, cooperative, well-developed, well-nourished Head exam: PRESENT: atraumatic, normocephalic Eye exam: PRESENT: conjunctiva pink, EOMI, PERRLA. ABSENT: scleral icterus Ear exam: PRESENT: normal external ear exam Mouth exam: PRESENT: moist, tongue midline Neck exam: ABSENT: carotid bruit, JVD, lymphadenopathy, thyromegaly Respiratory exam: PRESENT: rhonchi, symmetrical, tachypnea, wheezes. ABSENT: rales, unlabored Cardiovascular exam: PRESENT: irregular rhythm. ABSENT: diastolic murmur, rubs , systolic murmur Pulses: PRESENT: normal dorsalis pedis pul Vascular exam: PRESENT: normal capillary refill GI/Abdominal exam: PRESENT: normal bowel sounds, soft. ABSENT: distended, guarding, mass, organolmegaly, rebound, tenderness Rectal exam: PRESENT: deferred Extremities exam: PRESENT: full ROM. ABSENT: calf tenderness, clubbing, pedal edema Neurological exam: PRESENT: alert, awake, oriented to person, oriented to place , oriented to time, oriented to situation, CN II-XII grossly intact. ABSENT: motor sensory deficit Psychiatric exam: PRESENT: appropriate affect, normal mood. ABSENT: homicidal ideation, suicidal ideation Skin exam: PRESENT: dry, intact, warm. ABSENT: cyanosis, rash Results Laboratory Results: 04/27/16 03:45 04/29/16 04:01 04/29/16 04:01 Sodium 123.4 L Potassium 3.7 Chloride 86 L Carbon Dioxide 27 Anion Gap 10 BUN 13 Creatinine 0.54 Est GFR ( Amer) > 60 Est GFR (Non-Af Amer) > 60 Glucose 135 H Calcium 9.0 04/26/16 04/26/16 04/26/16 02:48 02:48 08:57 Creatine Kinase 58 64 CK-MB (CK-2) 2.45 Troponin I 0.023 NT-Pro-B Natriuret Pep 04/26/16 04/26/16 04/26/16 08:57 13:50 13:50 Creatine Kinase 89 CK-MB (CK-2) 2.74 4.34 Troponin I 0.040 0.021 NT-Pro-B Natriuret Pep 04/29/16 04:01 Creatine Kinase CK-MB (CK-2) Troponin I NT-Pro-B Natriuret Pep 695 H Impressions: Chest X-Ray 04/27/16 00:00 IMPRESSION: NO ACUTE CARDIOPULMONARY PROCESS. NO SIGNIFICANT CHANGE FROM PRIOR STUDY. Assessment & Plan - Diagnosis (1) Acute bronchitis Qualifiers: Bronchitis organism: unspecified organism Qualified Code(s): J20.9 - Acute bronchitis, unspecified Is this a current diagnosis for this admission?: YesPlan: Will continue current antibiotics, and nebs as needed. (2) Atrial fibrillation with RVR Is this a current diagnosis for this admission?: YesPlan: Will continue current medications and transition meds. Decrease Nebs interval. Do appreciate cardiology input. (3) Acute on chronic diastolic (congestive) heart failure Is this a current diagnosis for this admission?: YesPlan: Patient has underlying valvular disease. The patient responded well to a dose of Lasix. Do appreciate cardiology input with this. Most likely secondary to # 2 (4) Mitral regurgitation Qualifiers: Cardiac valve disease etiology: etiology unspecified Qualified Code( s): I34.0 - Nonrheumatic mitral (valve) insufficiency Is this a current diagnosis for this admission?: Yes (5) Hyperlipidemia Qualifiers: Hyperlipidemia type: other hyperlipidemia Qualified Code(s): E78.4 - Other hyperlipidemia Is this a current diagnosis for this admission?: Yes (6) Hypertension Qualifiers: Hypertension type: essential hypertension Qualified Code(s): I10 - Essential (primary) hypertension Is this a current diagnosis for this admission?: Yes (7) Hypothyroidism Qualifiers: Hypothyroidism type: acquired Qualified Code(s): E03.9 - Hypothyroidism, unspecified Is this a current diagnosis for this admission?: Yes (8) Supratherapeutic INR Is this a current diagnosis for this admission?: No (9) Coronary atherosclerosis Qualifiers: Coronary Disease-Associated Artery/Lesion type: [place] artery Associated angina: without angina Is this a current diagnosis for this admission?: YesPlan: Will continue home medications (10) Stented coronary artery Is this a current diagnosis for this admission?: Yes (11) Anticoagulant long-term use Is this a current diagnosis for this admission?: Yes (12) Hyponatremia Is this a current diagnosis for this admission?: YesPlan: Uncertain exact etiology of this is could be volume overload versus diuretic wasting. Will obtain osmolality studies and follow - Time Time Spent with patient: 25-34 minutes Medications reviewed and adjusted accordingly: Yes Anticipated discharge: Home Within: within 24 hours, within 48 hours
--- NOTE | 2016-04-29 13:07 | PDOC PROGRESS REPORT ---
Subjective Progress Note for:: 04/29/16 Subjective:: Patient seems to be doing better with gradual improvement. Pt is denying any chest arm or neck discomfort. Patient denying any PND, orthopnea. Patient denied any sustained palpitations, dizziness, syncope, near syncope. Patient denying any fever chills. Patient denying any other significant discomfort. Patient is maintaining atrial fibrillation. Heart rate is well controlled. Patient noted to be resting comfortably but is noted to have wheezing. Review of systems: Rest review of systems negative. Medications: Medications have been reviewed. Physical Exam Vital Signs: Temp Pulse Resp BP Pulse Ox 98.1 F 65 19 124/54 L 96 04/29/16 11:53 04/29/16 11:53 04/29/16 11:53 04/29/16 11:53 04/29/16 11:53 Intake & Output 04/28/16 04/29/16 04/30/16 06:59 06:59 06:59 Intake Total 1754 1162 1184 Output Total 1025 Balance 729 1162 1184 Weight 57.2 kg 57.4 kg Exam: GENERAL: well-nourished and in no acute distress. Alert and oriented x3 HEAD: Atraumatic, normocephalic. EYES: Pupils equal round and reactive to light, extraocular movements intact, sclera anicteric, conjunctiva are normal. ENT: TMs normal, nares patent, oropharynx clear without exudates. Moist mucous membranes. No oral ulcerations or bleeding gums noted NECK: supple without lymphadenopathy. Trachea is central. No cervical or axillary lymphadenopathy noted. Carotids are 2+, JVD WNL LUNGS: Respiration seems nonlabored, no significant accessory muscle action noted. Mild bilateral wheezes rales or rhonchi noted. No significant dullness noted on percussion. CHEST: Palpation of the chest wall shows no significant chest wall tenderness or abnormalities. HEART: [place] [employer], No PSH, 1/6 AMANDEEP aortic area, 1/6 carrillo systolic murmur mitral area, no rubs, no gallops. ABDOMEN: Soft, no significant tenderness appreciated, normoactive bowel sounds. No guarding, no rebound. No rigidity noted . No masses appreciated. EXTREMITIES: Pedal pulses are 1-2+, no calf tenderness noted. No clubbing or cyanosis.trace to 1+ pedal edema noted NEUROLOGICAL: Focused neurological exam showed no significant neurologic deficit. Normal speech, no focal weakness appreciated. PSYCH: Normal mood, normal affect. Judgment and insight within normal limits. SKIN: No significant ecchymosis, rash, ulcerations or signs of pruritus noted. MUSCULOSKELETAL EXAM: No significant joint swelling noted. Results Laboratory Results: 04/27/16 03:45 04/29/16 04:01 04/29/16 04:01 Sodium 123.4 L Potassium 3.7 Chloride 86 L Carbon Dioxide 27 Anion Gap 10 BUN 13 Creatinine 0.54 Est GFR ( Amer) > 60 Est GFR (Non-Af Amer) > 60 Glucose 135 H Calcium 9.0 04/26/16 04/26/16 04/26/16 02:48 02:48 08:57 Creatine Kinase 58 64 CK-MB (CK-2) 2.45 Troponin I 0.023 NT-Pro-B Natriuret Pep 04/26/16 04/26/16 04/26/16 08:57 13:50 13:50 Creatine Kinase 89 CK-MB (CK-2) 2.74 4.34 Troponin I 0.040 0.021 NT-Pro-B Natriuret Pep 04/29/16 04:01 Creatine Kinase CK-MB (CK-2) Troponin I NT-Pro-B Natriuret Pep 695 H Impressions: Chest X-Ray 04/27/16 00:00 IMPRESSION: NO ACUTE CARDIOPULMONARY PROCESS. NO SIGNIFICANT CHANGE FROM PRIOR STUDY. 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 insulin Is this a current diagnosis for this admission?: Yes (3) Congestive heart failure Qualifiers: Congestive heart failure type: diastolic Congestive heart failure chronicity: acute on chronic Qualified Code(s): I50.33 - Acute on chronic diastolic (congestive) heart failure Is this a current diagnosis for this admission?: Yes (4) Hyperlipidemia Qualifiers: Hyperlipidemia type: other hyperlipidemia Qualified Code(s): E78.4 - Other hyperlipidemia Is this a current diagnosis for this admission?: Yes (5) Coronary artery disease Is this a current diagnosis for this admission?: No (6) Mitral regurgitation Qualifiers: Cardiac valve disease etiology: etiology unspecified Qualified Code( s): I34.0 - Nonrheumatic mitral (valve) insufficiency Is this a current diagnosis for this admission?: Yes - Notes Notes: Atrial fibrillation: Rate seems well controlled on current dose of Cardizem. Continue chronic anticoagulation. Diabetes: Recommend good control of blood sugar. However should avoid any hypoglycemia. Patient being expertly managed by primary care MNancy Dyslipidemia:Patient noted to have dyslipidemia. LDL goal is less than 70. Recommend statin therapy at least intermediate or high dose, of high potency status. Periodic lipid panel and liver panel is indicated. Patient to report any significant muscle discomfort or other side effects. CHF: Diastolic. Most likely related to atrial fibrillation. Currently compensated. Continue current management plans with salt and fluid restriction. Patient placed on Lasix 20 mg by mouth daily. BNP level came back elevated. Coronary artery disease:CAD: Patient has CAD. Currently stable without any angina or angina equivalent symptoms. Discussed symptoms associated with unstable angina, acute coronary syndrome, myocardial infarction etc.aggressive risk factor modification advised. Mitral regurgitation: Moderate based on prior echocardiogram. Patient may need periodic follow-up. Patient lives 6 months in [place] and 6 months in [place]. She is on chronic Coumadin therapy which is being monitored by a physician in [place]. Have discussed that this can be monitored through my office if she prefers. - Time Time with patient: 15-25 minutes - CODE STATUS was discussed, patient remains full code. Surrogate decision-maker patient's daughter. Multiple medical problems were addressed.More than 50% of the time spent coordinating care, discussing management plans with involved caregivers. Management plans discussed with involved personnels. Medical decision making was of moderate complexity. Medications reviewed and adjusted accordingly: Yes
[2016-04-29 16:14] LABS: APPEARANCE,URINE CLEAR; BILIRUBIN,URINE NEGATIVE (NEGATIVE); GLUCOSE, URINE NEGATIVE (NEGATIVE); KETONES,URINE NEGATIVE (NEGATIVE); LEUKOCYTE ESTERASE,URINE NEGATIVE (NEGATIVE); NITRITE,URINE NEGATIVE (NEGATIVE); PROTEIN,URINE NEGATIVE (NEGATIVE); URINE SPECIFIC GRAVITY 1.008; UROBILINOGEN,URINE NEGATIVE mg/dL (<2.0)
[2016-04-29] MEDS: LEVOTHYROXINE SODIUM 0.075 MG TABLET PO SCH (21:23)
[2016-04-29] MEDS: MONTELUKAST SODIUM 10 MG TABLET PO SCH (21:23)
[2016-04-29] MEDS: FLUTICASONE NASAL SPRAY 50 MCG/SPRY 120 SPRAY/16 GM NASL SCH (21:24)
[2016-04-29] MEDS: WARFARIN SODIUM 4 MG TABLET PO SCH (21:24)
[2016-04-29] MEDS: ATORVASTATIN CALCIUM 10 MG TABLET PO SCH (21:24)
[2016-04-30] MEDS: LEVALBUTEROL HCL NEB 1.25 MG/3 ML AMPUL NEB SCH ×2 (00:48→07:38)
[2016-04-30 05:09] LABS: ANION GAP 7 (5-19); BLOOD UREA NITROGEN 11 mg/dL (7-20); CARBON DIOXIDE 29 mmol/L (22-30); CHLORIDE 90 mmol/L (98-107); CREATININE RESULT 0.44 mg/dL (0.52-1.25); GLUCOSE 168 mg/dL (75-110); POTASSIUM 3.6 mmol/L (3.6-5.0); SODIUM 125.9 mmol/L (137-145)
[2016-04-30 05:18] LABS: PROTHROMBIN TIME 20.9 SEC (11.4-15.4)
[2016-04-30] MEDS: CLONIDINE HCL 0.1 MG TABLET PO SCH ×3 (05:29→21:20)
[2016-04-30 06:03] LABS: APPEARANCE,URINE CLEAR; BILIRUBIN,URINE NEGATIVE (NEGATIVE); GLUCOSE, URINE NEGATIVE (NEGATIVE); KETONES,URINE NEGATIVE (NEGATIVE); LEUKOCYTE ESTERASE,URINE NEGATIVE (NEGATIVE); NITRITE,URINE NEGATIVE (NEGATIVE); PROTEIN,URINE NEGATIVE (NEGATIVE); URINE SPECIFIC GRAVITY 1.004; UROBILINOGEN,URINE NEGATIVE mg/dL (<2.0)
[2016-04-30] MEDS: METFORMIN HCL 500 MG TABLET PO SCH ×2 (08:43→15:17)
[2016-04-30] MEDS: INSULIN LISPRO 100 UNIT/ML 3 ML VIAL SUBCUT PRN (08:44)
[2016-04-30] MEDS: LOSARTAN POTASSIUM 50 MG TABLET PO SCH (11:09)
[2016-04-30] MEDS: OMEGA-3 ACID ETHYL ESTERS 1 GM CAPSULE PO SCH (11:10)
[2016-04-30] MEDS: INSULIN DETEMIR 100 UNIT/ML 3 ML PEN SUBCUT SCH (11:10)
[2016-04-30] MEDS: CETIRIZINE 10 MG TABLET PO SCH (11:11)
[2016-04-30] MEDS: MAGNESIUM OXIDE 400 MG TABLET PO SCH (11:11)
[2016-04-30] MEDS: LEVOFLOXACIN 500 MG TABLET PO SCH (11:11)
[2016-04-30] MEDS: GUAIFENESIN 600 MG TABLET.SA PO SCH ×2 (11:12→21:20)
[2016-04-30] MEDS: DILTIAZEM HCL 180 MG CAPSULE.CR PO SCH ×2 (11:14→21:20)
[2016-04-30] MEDS: FUROSEMIDE 40 MG TABLET PO SCH (11:14)
[2016-04-30] MEDS: CALCIUM CARBONATE 500 MG TABLET PO SCH (11:14)
[2016-04-30] MEDS: MULTIVITAMIN TABLET PO SCH (11:16)
[2016-04-30] MEDS: FLUTICASONE NASAL SPRAY 50 MCG/SPRY 120 SPRAY/16 GM NASL SCH ×2 (11:16→21:21)
[2016-04-30] MEDS: ASPIRIN 81 MG TABLET, CHEWABLE PO SCH (11:16)
--- NOTE | 2016-04-30 16:00 | PDOC PROGRESS REPORT ---
Subjective Progress Note for:: 04/30/16 Subjective:: The patient was seen earlier today on rounds. The patient states that she is fatigued but her shortness of breath has improved in comparison to yesterday. Patient stated that she did have some dizziness this morning. The patient has admitted producing some sputum. The patient denies any nausea, vomiting, diarrhea, dizziness, chest pain, heart palpitations, fevers, or chills. The patient has remained afebrile. Blood pressures have been in a good range. When prompted the patient voices no other concerns at this time. Review of systems: The rest of the review of systems is negative. Physical Exam Vital Signs: Temp Pulse Resp BP Pulse Ox 98.6 F 73 17 130/62 H 98 04/30/16 11:05 04/30/16 11:05 04/30/16 11:05 04/30/16 11:05 04/30/16 11:05 Intake & Output 04/28/16 04/29/16 04/30/16 23:59 23:59 23:59 Intake Total 1087 2009 1115 Output Total 912 181 7726 Balance 262 1709 -935 Weight 57.2 kg 57.4 kg 56.4 kg General appearance: PRESENT: no acute distress, cooperative, well-developed, well-nourished Head exam: PRESENT: atraumatic, normocephalic Eye exam: PRESENT: conjunctiva pink, EOMI, PERRLA. ABSENT: scleral icterus Ear exam: PRESENT: normal external ear exam Mouth exam: PRESENT: moist, tongue midline Neck exam: ABSENT: carotid bruit, JVD, lymphadenopathy, thyromegaly Respiratory exam: PRESENT: symmetrical, tachypnea, wheezes but improved in comparison to yesterday. ABSENT: rales, unlabored Cardiovascular exam: PRESENT: irregular rhythm. ABSENT: diastolic murmur, rubs , systolic murmur Pulses: PRESENT: normal dorsalis pedis pul Vascular exam: PRESENT: normal capillary refill GI/Abdominal exam: PRESENT: normal bowel sounds, soft. ABSENT: distended, guarding, mass, organolmegaly, rebound, tenderness Rectal exam: PRESENT: deferred Extremities exam: PRESENT: full ROM. ABSENT: calf tenderness, clubbing, pedal edema Neurological exam: PRESENT: alert, awake, oriented to person, oriented to place , oriented to time, oriented to situation, CN II-XII grossly intact. ABSENT: motor sensory deficit Psychiatric exam: PRESENT: appropriate affect, normal mood. ABSENT: homicidal ideation, suicidal ideation Skin exam: PRESENT: dry, intact, warm. ABSENT: cyanosis, rash Results Laboratory Results: 04/27/16 03:45 04/30/16 04:32 04/29/16 04/29/16 04/29/16 15:35 15:35 15:40 Sodium 123.2 L Potassium Chloride Carbon Dioxide Anion Gap BUN Creatinine Est GFR ( Amer) Est GFR (Non-Af Amer) Glucose Serum Osmolality Calcium Urine Color Urine Appearance Urine pH Ur Specific [place] Urine Protein Urine Glucose (UA) Urine Ketones Urine Blood Urine Nitrite Ur Leukocyte Esterase Urine WBC (Auto) Urine Osmolality 04/29/16 04/30/16 04/30/16 15:40 04:15 04:32 Sodium 125.9 L Potassium 3.6 Chloride 90 L Carbon Dioxide 29 Anion Gap 7 BUN 11 Creatinine 0.44 L Est GFR ( Amer) > 60 Est GFR (Non-Af Amer) > 60 Glucose 168 H Serum Osmolality Calcium 9.0 Urine Color YELLOW STRAW Urine Appearance CLEAR CLEAR Urine pH 7.0 7.0 Ur Specific [place] 1.008 1.004 Urine Protein NEGATIVE NEGATIVE Urine Glucose (UA) NEGATIVE NEGATIVE Urine Ketones NEGATIVE NEGATIVE Urine Blood NEGATIVE NEGATIVE Urine Nitrite NEGATIVE NEGATIVE Ur Leukocyte Esterase NEGATIVE NEGATIVE Urine WBC (Auto) 0 1 Urine Osmolality 04/26/16 04/26/16 04/26/16 02:48 02:48 08:57 Creatine Kinase 58 64 CK-MB (CK-2) 2.45 Troponin I 0.023 NT-Pro-B Natriuret Pep 04/26/16 04/26/16 04/26/16 08:57 13:50 13:50 Creatine Kinase 89 CK-MB (CK-2) 2.74 4.34 Troponin I 0.040 0.021 NT-Pro-B Natriuret Pep 04/29/16 04:01 Creatine Kinase CK-MB (CK-2) Troponin I NT-Pro-B Natriuret Pep 695 H Impressions: Chest X-Ray 04/27/16 00:00 IMPRESSION: NO ACUTE CARDIOPULMONARY PROCESS. NO SIGNIFICANT CHANGE FROM PRIOR STUDY. Assessment & Plan - Diagnosis (1) Acute bronchitis Qualifiers: Bronchitis organism: unspecified organism Qualified Code(s): J20.9 - Acute bronchitis, unspecified Is this a current diagnosis for this admission?: YesPlan: Will continue current antibiotics, and nebs as needed. (2) Atrial fibrillation with RVR Is this a current diagnosis for this admission?: YesPlan: Will continue current medications and transition meds. Decrease Nebs interval. Do appreciate cardiology input. (3) Acute on chronic diastolic (congestive) heart failure Is this a current diagnosis for this admission?: YesPlan: Patient has underlying valvular disease. The patient responded well to a dose of Lasix. Do appreciate cardiology input with this. Most likely secondary to # 2 (4) Mitral regurgitation Qualifiers: Cardiac valve disease etiology: etiology unspecified Qualified Code( s): I34.0 - Nonrheumatic mitral (valve) insufficiency Is this a current diagnosis for this admission?: Yes (5) Hyperlipidemia Qualifiers: Hyperlipidemia type: other hyperlipidemia Qualified Code(s): E78.4 - Other hyperlipidemia Is this a current diagnosis for this admission?: Yes (6) Hypertension Qualifiers: Hypertension type: essential hypertension Qualified Code(s): I10 - Essential (primary) hypertension Is this a current diagnosis for this admission?: Yes (7) Hypothyroidism Qualifiers: Hypothyroidism type: acquired Qualified Code(s): E03.9 - Hypothyroidism, unspecified Is this a current diagnosis for this admission?: Yes (8) Supratherapeutic INR Is this a current diagnosis for this admission?: No (9) Coronary atherosclerosis Qualifiers: Coronary Disease-Associated Artery/Lesion type: robinson artery Associated angina: without angina Is this a current diagnosis for this admission?: YesPlan: Will continue home medications (10) Stented coronary artery Is this a current diagnosis for this admission?: Yes (11) Anticoagulant long-term use Is this a current diagnosis for this admission?: Yes (12) Hyponatremia Is this a current diagnosis for this admission?: YesPlan: It appears that the patient has low findings on her hyponatremia study throughout. Most likely due to hypoalbuminemia and so forth. Will fluid restrict free water. - Time Time Spent with patient: 25-34 minutes Medications reviewed and adjusted accordingly: Yes Anticipated discharge: Home Within: within 24 hours
[2016-04-30] MEDS: LEVALBUTEROL HCL NEB 0.63 MG/3 ML AMPUL NEB PRN (18:30)
--- NOTE | 2016-04-30 19:38 | PDOC PROGRESS REPORT ---
Subjective Progress Note for:: 04/30/16 Subjective:: Patient seems to be doing better with gradual improvement. Overall claims to be feeling better. Pt is denying any chest arm or neck discomfort. Patient denying any PND, orthopnea. Patient denied any sustained palpitations, dizziness, syncope, near syncope. Patient denying any fever chills. Patient denying any other significant discomfort. Patient is maintaining atrial fibrillation. Heart rate is well controlled. Patient noted to be resting comfortably but is noted to have wheezing. Review of systems: Rest review of systems negative. Medications: Medications have been reviewed. Physical Exam Vital Signs: Temp Pulse Resp BP Pulse Ox 97.5 F 85 20 138/96 H 94 04/30/16 15:44 04/30/16 18:30 04/30/16 18:30 04/30/16 15:44 04/30/16 18:30 Intake & Output 04/29/16 04/30/16 05/01/16 06:59 06:59 06:59 Intake Total 1162 2139 1040 Output Total 1500 1450 Balance 1162 639 -410 Weight 57.4 kg 56.4 kg Exam: GENERAL: well-nourished and in no acute distress. Alert and oriented x3 HEAD: Atraumatic, normocephalic. EYES: Pupils equal round and reactive to light, extraocular movements intact, sclera anicteric, conjunctiva are normal. ENT: TMs normal, nares patent, oropharynx clear without exudates. Moist mucous membranes. No oral ulcerations or bleeding gums noted NECK: supple without lymphadenopathy. Trachea is central. No cervical or axillary lymphadenopathy noted. Carotids are 2+, JVD WNL LUNGS: Respiration seems nonlabored, no significant accessory muscle action noted. Bilateral mild wheezes rales or rhonchi noted. No significant dullness noted on percussion. CHEST: Palpation of the chest wall shows no significant chest wall tenderness or abnormalities. HEART: [place] [employer]ER, No PSH, 1/6 AMANDEEP aortic area, 1/6 carrillo systolic murmur mitral area, no rubs, no gallops. ABDOMEN: Soft, no significant tenderness appreciated, normoactive bowel sounds. No guarding, no rebound. No rigidity noted . No masses appreciated. EXTREMITIES: Pedal pulses are 1-2+, no calf tenderness noted. No clubbing or cyanosis.trace to 1+ pedal edema noted NEUROLOGICAL: Focused neurological exam showed no significant neurologic deficit. Normal speech, no focal weakness appreciated. PSYCH: Normal mood, normal affect. Judgment and insight within normal limits. SKIN: No significant ecchymosis, rash, ulcerations or signs of pruritus noted. MUSCULOSKELETAL EXAM: No significant joint swelling noted. Results Laboratory Results: 04/27/16 03:45 04/30/16 04:32 04/30/16 04/30/16 04:15 04:32 Sodium 125.9 L Potassium 3.6 Chloride 90 L Carbon Dioxide 29 Anion Gap 7 BUN 11 Creatinine 0.44 L Est GFR ( Amer) > 60 Est GFR (Non-Af Amer) > 60 Glucose 168 H Calcium 9.0 Urine Color STRAW Urine Appearance CLEAR Urine pH 7.0 Ur Specific [place] 1.004 Urine Protein NEGATIVE Urine Glucose (UA) NEGATIVE Urine Ketones NEGATIVE Urine Blood NEGATIVE Urine Nitrite NEGATIVE Ur Leukocyte Esterase NEGATIVE Urine WBC (Auto) 1 04/26/16 04/26/16 04/26/16 02:48 02:48 08:57 Creatine Kinase 58 64 CK-MB (CK-2) 2.45 Troponin I 0.023 NT-Pro-B Natriuret Pep 04/26/16 04/26/16 04/26/16 08:57 13:50 13:50 Creatine Kinase 89 CK-MB (CK-2) 2.74 4.34 Troponin I 0.040 0.021 NT-Pro-B Natriuret Pep 04/29/16 04:01 Creatine Kinase CK-MB (CK-2) Troponin I NT-Pro-B Natriuret Pep 695 H Impressions: Chest X-Ray 04/27/16 00:00 IMPRESSION: NO ACUTE CARDIOPULMONARY PROCESS. NO SIGNIFICANT CHANGE FROM PRIOR STUDY. Assessment & Plan - Diagnosis (1) Atrial fibrillation Qualifiers: Atrial fibrillation type: persistent Qualified Code(s): I48.1 - Persistent atrial fibrillation Is this a current diagnosis for this admission?: Yes (2) Diabetes Qualifiers: Diabetes mellitus type: type 2 Diabetes mellitus complication status: with unspecified complications Diabetes mellitus fci insulin use: unspecified fci insulin use status Qualified Code(s): E11.8 - Type 2 diabetes mellitus with unspecified complications; Z79.4 - [facility] (current) use of insulin Is this a current diagnosis for this admission?: Yes (3) Congestive heart failure Qualifiers: Congestive heart failure type: diastolic Congestive heart failure chronicity: acute on chronic Qualified Code(s): I50.33 - Acute on chronic diastolic (congestive) heart failure Is this a current diagnosis for this admission?: Yes (4) Hyperlipidemia Qualifiers: Hyperlipidemia type: other hyperlipidemia Qualified Code(s): E78.4 - Other hyperlipidemia Is this a current diagnosis for this admission?: Yes (5) Coronary artery disease Is this a current diagnosis for this admission?: No (6) Mitral regurgitation Qualifiers: Cardiac valve disease etiology: etiology unspecified Qualified Code( s): I34.0 - Nonrheumatic mitral (valve) insufficiency Is this a current diagnosis for this admission?: Yes - Notes Notes: Atrial fibrillation: Rate seems well controlled on current dose of Cardizem. Continue chronic anticoagulation. Diabetes: Recommend good control of blood sugar. However should avoid any hypoglycemia. Patient being expertly managed by primary care M.D. Dyslipidemia:Patient noted to have dyslipidemia. LDL goal is less than 70. Recommend statin therapy at least intermediate or high dose, of high potency status. Periodic lipid panel and liver panel is indicated. Patient to report any significant muscle discomfort or other side effects. CHF: Diastolic. Most likely related to atrial fibrillation. Currently compensated. Continue current management plans with salt and fluid restriction. Patient was placed on Lasix 20 mg by mouth daily. Seems to have responded with decreased wheezing. Coronary artery disease:CAD: Patient has CAD. Currently stable without any angina or angina equivalent symptoms. Discussed symptoms associated with unstable angina, acute coronary syndrome, myocardial infarction etc.aggressive risk factor modification advised. Mitral regurgitation: Moderate based on prior echocardiogram. Patient may need periodic follow-up. Patient lives 6 months in [place] and 6 months in [place]. She is on chronic Coumadin therapy which is being monitored by a physician in [place]. Have discussed that this can be monitored through my office if she prefers. - Time Time with patient: 15-25 minutes - CODE STATUS was discussed, patient remains full code. Surrogate decision-maker unchanged. Multiple medical problems were addressed.More than 50% of the time spent coordinating care, discussing management plans with involved caregivers. Management plans discussed with involved personnels. Medical decision making was of moderate complexity. Medications reviewed and adjusted accordingly: Yes
[2016-04-30] MEDS: LEVOTHYROXINE SODIUM 0.075 MG TABLET PO SCH (21:20)
[2016-04-30] MEDS: MONTELUKAST SODIUM 10 MG TABLET PO SCH (21:20)
[2016-04-30] MEDS: ATORVASTATIN CALCIUM 10 MG TABLET PO SCH (21:20)
[2016-04-30] MEDS: WARFARIN SODIUM 4 MG TABLET PO SCH (21:20)
[2016-05-01 05:02] LABS: ANION GAP 11 (5-19); BLOOD UREA NITROGEN 14 mg/dL (7-20); CALCIUM 9.5 mg/dL (8.4-10.2); CARBON DIOXIDE 29 mmol/L (22-30); CHLORIDE 91 mmol/L (98-107); CREATININE RESULT 0.57 mg/dL (0.52-1.25); GLUCOSE 106 mg/dL (75-110); MAGNESIUM 1.5 mg/dL (1.6-2.3); PROTHROMBIN TIME 21.9 SEC (11.4-15.4); SODIUM 130.9 mmol/L (137-145)
[2016-05-01] MEDS: CLONIDINE HCL 0.1 MG TABLET PO SCH (06:11)
[2016-05-01] MEDS: METFORMIN HCL 500 MG TABLET PO SCH (08:12)
[2016-05-01] MEDS: LEVOFLOXACIN 500 MG TABLET PO SCH (09:44)
[2016-05-01] MEDS: OMEGA-3 ACID ETHYL ESTERS 1 GM CAPSULE PO SCH (09:44)
[2016-05-01] MEDS: CALCIUM CARBONATE 500 MG TABLET PO SCH (09:44)
[2016-05-01] MEDS: GUAIFENESIN 600 MG TABLET.SA PO SCH (09:45)
[2016-05-01] MEDS: LOSARTAN POTASSIUM 50 MG TABLET PO SCH (09:45)
[2016-05-01] MEDS: FUROSEMIDE 40 MG TABLET PO SCH (09:45)
[2016-05-01] MEDS: CETIRIZINE 10 MG TABLET PO SCH (09:46)
[2016-05-01] MEDS: MULTIVITAMIN TABLET PO SCH (09:46)
[2016-05-01] MEDS: DILTIAZEM HCL 180 MG CAPSULE.CR PO SCH (09:46)
[2016-05-01] MEDS: ASPIRIN 81 MG TABLET, CHEWABLE PO SCH (09:47)
[2016-05-01] MEDS: INSULIN DETEMIR 100 UNIT/ML 3 ML PEN SUBCUT SCH (09:48)
[2016-05-01] MEDS: FLUTICASONE NASAL SPRAY 50 MCG/SPRY 120 SPRAY/16 GM NASL SCH (09:48)
[2016-05-01] MEDS ORDERED: MAGNESIUM OXIDE 400 MG TABLET PO SCH (10:00)
[2016-05-01 11:34] VITALS: BP 113/59
--- NOTE | 2016-05-01 12:39 | PDOC PROGRESS REPORT ---
Subjective Progress Note for:: 05/01/16 Subjective:: Patient seems to be doing better with gradual improvement. Overall claims to be feeling better. Pt is denying any chest arm or neck discomfort. Patient denying any PND, orthopnea. Patient denied any sustained palpitations, dizziness, syncope, near syncope. Patient denying any fever chills. Patient denying any other significant discomfort. Patient is maintaining atrial fibrillation. Heart rate is well controlled. Patient noted to be resting comfortably but is noted to have wheezing. Review of systems: Rest review of systems negative. Medications: Medications have been reviewed. Physical Exam Vital Signs: Temp Pulse Resp BP Pulse Ox 98.6 F 98 20 129/56 H 96 05/01/16 11:30 05/01/16 11:30 05/01/16 11:30 05/01/16 11:30 05/01/16 11:30 Intake & Output 04/30/16 05/01/16 05/02/16 06:59 06:59 06:59 Intake Total 2139 1690 Output Total 1500 2625 Balance 639 -935 Weight 56.4 kg 54.8 kg Exam: GENERAL: well-nourished and in no acute distress. Alert and oriented x3 HEAD: Atraumatic, normocephalic. EYES: Pupils equal round and reactive to light, extraocular movements intact, sclera anicteric, conjunctiva are normal. ENT: TMs normal, nares patent, oropharynx clear without exudates. Moist mucous membranes. No oral ulcerations or bleeding gums noted NECK: supple without lymphadenopathy. Trachea is central. No cervical or axillary lymphadenopathy noted. Carotids are 2+, JVD WNL LUNGS: Respiration seems nonlabored, no significant accessory muscle action noted. Bibasilar mild crackles noted. Bilateral mild wheezes rales or rhonchi noted. No significant dullness noted on percussion. CHEST: Palpation of the chest wall shows no significant chest wall tenderness or abnormalities. 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 ABDOMEN: Soft, no significant tenderness appreciated, normoactive bowel sounds. No guarding, no rebound. No rigidity noted . No masses appreciated. EXTREMITIES: Pedal pulses are 1-2+, no calf tenderness noted. No clubbing or cyanosis.trace to 1+ pedal edema noted NEUROLOGICAL: Focused neurological exam showed no significant neurologic deficit. Normal speech, no focal weakness appreciated. PSYCH: Normal mood, normal affect. Judgment and insight within normal limits. SKIN: No significant ecchymosis, rash, ulcerations or signs of pruritus noted. MUSCULOSKELETAL EXAM: No significant joint swelling noted. Results Laboratory Results: 04/27/16 03:45 05/01/16 03:55 05/01/16 03:55 Sodium 130.9 L Potassium 4.0 Chloride 91 L Carbon Dioxide 29 Anion Gap 11 BUN 14 Creatinine 0.57 Est GFR ( Amer) > 60 Est GFR (Non-Af Amer) > 60 Glucose 106 Calcium 9.5 Magnesium 1.5 L 04/26/16 04/26/16 04/26/16 02:48 02:48 08:57 Creatine Kinase 58 64 CK-MB (CK-2) 2.45 Troponin I 0.023 NT-Pro-B Natriuret Pep 04/26/16 04/26/16 04/26/16 08:57 13:50 13:50 Creatine Kinase 89 CK-MB (CK-2) 2.74 4.34 Troponin I 0.040 0.021 NT-Pro-B Natriuret Pep 04/29/16 04:01 Creatine Kinase CK-MB (CK-2) Troponin I NT-Pro-B Natriuret Pep 695 H Impressions: Chest X-Ray 04/27/16 00:00 IMPRESSION: NO ACUTE CARDIOPULMONARY PROCESS. NO SIGNIFICANT CHANGE FROM PRIOR STUDY. 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) use of insulin Is this a current diagnosis for this admission?: Yes (3) Congestive heart failure Qualifiers: Congestive heart failure type: diastolic Congestive heart failure chronicity: acute on chronic Qualified Code(s): I50.33 - Acute on chronic diastolic (congestive) heart failure Is this a current diagnosis for this admission?: Yes (4) Hyperlipidemia Qualifiers: Hyperlipidemia type: other hyperlipidemia Qualified Code(s): E78.4 - Other hyperlipidemia Is this a current diagnosis for this admission?: Yes (5) Coronary artery disease Is this a current diagnosis for this admission?: No (6) Mitral regurgitation Qualifiers: Cardiac valve disease etiology: etiology unspecified Qualified Code( s): I34.0 - Nonrheumatic mitral (valve) insufficiency Is this a current diagnosis for this admission?: Yes - Notes Notes: Atrial fibrillation: Currently persistent. Continue chronic anticoagulation and rate control. Diabetes: Currently stable. CHF: Patient still short of breath. Will get a chest x-ray PA and lateral and also a BNP level for tomorrow morning. We'll check a complete blood count. Dyslipidemia: Continue statin therapy. CAD: Currently stable. Mitral regurgitation: Patient will need follow-up echocardiogram on a periodic basis. Patient encouraged to increase her physical activities. - Time Time with patient: 15-25 minutes - CODE STATUS was discussed, patient remains full code. Surrogate decision-maker unchanged. Multiple medical problems were addressed.More than 50% of the time spent coordinating care, discussing management plans with involved caregivers. Management plans discussed with involved personnels. Medical decision making was of moderate complexity.
--- NOTE | 2016-05-01 16:53 | PDOC DISCHARGE SUMMARY ---
General - Admit/Disc Date/PCP Admission Date/Primary Care Provider: 04/26/16 01:56 In [place]. Consulting gear changer: Dr. Milian Discharge Date: 05/01/16 - Discharge Diagnosis (1) Acute bronchitis Is this a current diagnosis for this admission?: Yes (2) Atrial fibrillation with RVR Is this a current diagnosis for this admission?: Yes (3) Acute on chronic diastolic (congestive) heart failure Is this a current diagnosis for this admission?: Yes (4) Mitral regurgitation Is this a current diagnosis for this admission?: Yes (5) Hyperlipidemia Is this a current diagnosis for this admission?: Yes (6) Hypertension Is this a current diagnosis for this admission?: Yes (7) Hypothyroidism Is this a current diagnosis for this admission?: Yes (8) Supratherapeutic INR Is this a current diagnosis for this admission?: No (9) Coronary atherosclerosis Is this a current diagnosis for this admission?: Yes (10) Stented coronary artery Is this a current diagnosis for this admission?: Yes (11) Anticoagulant long-term use Is this a current diagnosis for this admission?: Yes (12) Hyponatremia Is this a current diagnosis for this admission?: Yes - Additional Information Resuscitation Status: Full Code Discharge Diet: Cardiac, Diabetic Discharge Activity: Activity As Tolerated, Balance Activity w/Rest, Weigh Daily Home Medications: Aspirin [Aspirin 81 mg Chewable Tablet] 81 mg PO DAILY 05/02/14 Calcium Carbonate [Calcium] 600 mg PO DAILY 05/02/14 Fluticasone Propionate [Flonase Nasal [place] 50 Mcg/[place] 16 gm] 2 sprays NASL Q12HP PRN 05/02/14 Ipratropium/Albuterol Sulfate [Combivent Respimat 4 gm Mdi] 1 - 2 puff IH Q6HP PRN 05/02/14 Ipratropium/Albuterol Sulfate [Duoneb 3 ml Ampul] 3 ml NEB RTQ12 05/02/14 Levothyroxine Sodium 75 mcg PO QHS 05/02/14 Losartan Potassium 100 mg PO DAILY 05/02/14 Magnesium Oxide [Magnesium] 250 mg PO DAILY 05/02/14 Montelukast Sodium 10 mg PO QHS 05/02/14 Multivitamin [Multi-Vitamin Daily] 1 each PO DAILY 05/02/14 Holman-3 Fatty Acids [Fish Oil] 1,200 mg PO DAILY 05/02/14 Pantoprazole Sodium 40 mg PO BID 05/02/14 Metformin HCl [Glucophage 500 mg Tablet] 500 mg PO BIDACBS #60 tab 05/05/14 Acetaminophen [Tylenol Extra Strength] 500 mg PO QIDP PRN 04/10/16 Atorvastatin Calcium 10 mg PO QHS 04/10/16 Cholecalciferol (Vitamin D3) [Vitamin D3 400 Unit Tablet] 400 unit PO DAILY Cyanocobalamin (Vitamin B-12) [Vitamin B-12] 100 mcg PO MOWEFR@1000 04/10/16 Diltiazem HCl [Cardizem Cd 180 mg Capsule] 180 mg PO Q12 04/10/16 Fluticasone Propionate [Flovent Hfa 110 Mcg Inhalation Aerosol 12 gm] 1 puff IH Q12 04/10/16 Fluticasone/Salmeterol [Advair 500-50 Diskus 14 Dose/Diskus] 1 inh IH Q12 Lutein 6 mg PO DAILY 04/10/16 Nitroglycerin [Nitrostat 0.4 mg (1/150 Gr) Tabs 25/Bottle] 1 tab SL Q5MP PRN Insulin Detemir [Levemir Flextouch] 10 unit SQ QAM 04/26/16 Warfarin Sodium [Coumadin] 4 mg PO QPM 04/26/16 Levofloxacin [Levaquin 500 mg Tablet] 500 mg PO DAILY #4 tablet 05/01/16 History of Present Illness Patient complains of: Shortness of breath and tachycardia History of Present Illness: MACO HERNANDEZ is a 89 year old femalwith a past medical history of atrial fibrillation and a recent reduction in her Cardizem by half and discontinuation of clonidine 6 days ago who is noted exceptional shortness of breath and palpitations over the last 24 hours prompting to seek evaluation emergency room where she's found to have uncontrolled A. fib in the 150s, and a chest x-ray suggestive of pulmonary basilar congestion and leukocytosis of 16,000 she started on empiric antibiotics and IV Cardizem plan referred to the hospitalist for admission. Hospital Course Hospital Course: The patient was admitted to [facility]. The patient was diuresed with IV diuretic and continued on home medications including aspirin, and CAMMY inhibitor. The patient does not have the pressure to support beta carmelina with antidysrhythmic agent. The patient had significant improvement in symptoms. The patient received education and was instructed on dietary habits as well as daily weights. The patient will follow-up with cardiology in outpatient basis. The patient was noted to be in atrial fibrillation with a rapid ventricular response. The patient was placed on a Cardizem converted to sinus rhythm. The patient was seen and evaluated by cardiology. The patient tolerated the transition to oral antidysrhythmic, Cardizem CD, and has remained in sinus rhythm since. Anticoagulation risk and benefits were discussed and the patient was continued on warfarin. This has been tolerated well. The patient was also noted to have an acute bronchitis last sinusitis. The patient responded nebulizer therapy as well as oral Levaquin. Physical Exam Vital Signs: Temp Pulse Resp BP Pulse Ox 98.6 F 98 20 129/56 H 96 05/01/16 11:30 05/01/16 11:30 05/01/16 11:30 05/01/16 11:30 05/01/16 11:30 Intake & Output 04/29/16 04/30/16 05/01/16 23:59 23:59 23:59 Intake Total 2009 1595 650 Output Total 300 2650 1175 Balance 1709 -1055 -525 Weight 57.4 kg 56.4 kg 54.8 kg General appearance: PRESENT: no acute distress, cooperative, well-developed, well-nourished Head exam: PRESENT: atraumatic, normocephalic Eye exam: PRESENT: conjunctiva pink, EOMI, PERRLA. ABSENT: scleral icterus Ear exam: PRESENT: normal external ear exam Mouth exam: PRESENT: moist, tongue midline Neck exam: ABSENT: carotid bruit, JVD, lymphadenopathy, thyromegaly Respiratory exam: PRESENT: symmetrical, tachypnea, wheezes but improved in comparison to yesterday. ABSENT: rales, unlabored Cardiovascular exam: PRESENT: irregular rhythm. ABSENT: diastolic murmur, rubs , systolic murmur Pulses: PRESENT: normal dorsalis pedis pul Vascular exam: PRESENT: normal capillary refill GI/Abdominal exam: PRESENT: normal bowel sounds, soft. ABSENT: distended, guarding, mass, organolmegaly, rebound, tenderness Rectal exam: PRESENT: deferred Extremities exam: PRESENT: full ROM. ABSENT: calf tenderness, clubbing, pedal edema Neurological exam: PRESENT: alert, awake, oriented to person, oriented to place , oriented to time, oriented to situation, CN II-XII grossly intact. ABSENT: motor sensory deficit Psychiatric exam: PRESENT: appropriate affect, normal mood. ABSENT: homicidal ideation, suicidal ideation Skin exam: PRESENT: dry, intact, warm. ABSENT: cyanosis, rash Results Laboratory Results: Labs- Last Values WBC 14.8 10^3/uL (4.0-10.5) H 04/27/16 03:45 RBC 4.12 10^6/uL (3.72-5.28) 04/27/16 03:45 Hgb 11.4 g/dL (12.0-15.5) L 04/27/16 03:45 Hct 34.5 % (36.0-47.0) L 04/27/16 03:45 MCV 84 fl (80-97) 04/27/16 03:45 MCH 27.6 pg (27.0-33.4) 04/27/16 03:45 MCHC 32.9 g/dL (32.0-36.0) 04/27/16 03:45 RDW 16.4 % (11.5-14.0) H 04/27/16 03:45 Plt Count 219 10^3/uL (150-450) 04/27/16 03:45 Seg Neutrophils % 69.7 % (42-78) 04/26/16 08:57 Lymphocytes % 19.4 % (13-45) 04/26/16 08:57 Monocytes % 10.5 % (3-13) 04/26/16 08:57 Eosinophils % 0.1 % (0-6) 04/26/16 08:57 Basophils % 0.3 % (0-2) 04/26/16 08:57 Absolute Neutrophils 7.3 10^3/uL (1.7-8.2) 04/26/16 08:57 Absolute Lymphocytes 2.0 10^3/uL (0.5-4.7) 04/26/16 08:57 Absolute Monocytes 1.1 10^3/uL (0.1-1.4) 04/26/16 08:57 Absolute Eosinophils 0.0 10^3/uL (0.0-0.6) 04/26/16 08:57 Absolute Basophils 0.0 10^3/uL (0.0-0.2) 04/26/16 08:57 PT 21.9 SEC (11.4-15.4) H 05/01/16 03:55 INR 1.83 05/01/16 03:55 Sodium 130.9 mmol/L (137-145) L 05/01/16 03:55 Potassium 4.0 mmol/L (3.6-5.0) 05/01/16 03:55 Chloride 91 mmol/L (98-107) L 05/01/16 03:55 Carbon Dioxide 29 mmol/L (22-30) 05/01/16 03:55 Anion Gap 11 (5-19) 05/01/16 03:55 BUN 14 mg/dL (7-20) 05/01/16 03:55 Creatinine 0.57 mg/dL (0.52-1.25) 05/01/16 03:55 Est GFR ( Amer) > 60 (>60) 05/01/16 03:55 Est GFR (Non-Af Amer) > 60 (>60) 05/01/16 03:55 Glucose 106 mg/dL (75-110) 05/01/16 03:55 POC Glucose 86 mg/dL (70-110) 05/01/16 11:22 Serum Osmolality mOsm/kg (275-301) 04/29/16 15:35 Calcium 9.5 mg/dL (8.4-10.2) 05/01/16 03:55 Magnesium 1.5 mg/dL (1.6-2.3) L 05/01/16 03:55 Total Bilirubin 0.7 mg/dL (0.2-1.3) 04/25/16 19:52 Direct Bilirubin 0.0 mg/dL (0.0-0.3) 04/25/16 19:52 AST 17 U/L (14-36) 04/25/16 19:52 ALT 32 U/L (9-52) 04/25/16 19:52 Alkaline Phosphatase 83 U/L (38-126) 04/25/16 19:52 Creatine Kinase 89 U/L (30-135) 04/26/16 13:50 CK-MB (CK-2) 4.34 ng/mL (<4.55) 04/26/16 13:50 Troponin I 0.021 ng/mL 04/26/16 13:50 NT-Pro-B Natriuret Pep 695 pg/mL (<450) H 04/29/16 04:01 Total Protein 7.7 g/dL (6.3-8.2) 04/25/16 19:52 Albumin 5.0 g/dL (3.5-5.0) 04/25/16 19:52 TSH 0.94 uIU/mL (0.47-4.68) 04/26/16 08:57 Free T4 1.32 ng/dL (0.78-2.19) 04/26/16 08:57 Free T3 pg/mL 3.00 pg/mL (2.77-5.27) 04/26/16 08:57 Urine Color STRAW 04/30/16 04:15 Urine Appearance CLEAR 04/30/16 04:15 Urine pH 7.0 (5.0-9.0) 04/30/16 04:15 Ur Specific [place] 1.004 04/30/16 04:15 Urine Protein NEGATIVE mg/dL (NEGATIVE) 04/30/16 04:15 Urine Glucose (UA) NEGATIVE mg/dL (NEGATIVE) 04/30/16 04:15 Urine Ketones NEGATIVE mg/dL (NEGATIVE) 04/30/16 04:15 Urine Blood NEGATIVE (NEGATIVE) 04/30/16 04:15 Urine Nitrite NEGATIVE (NEGATIVE) 04/30/16 04:15 Urine Bilirubin NEGATIVE (NEGATIVE) 04/30/16 04:15 Urine Urobilinogen NEGATIVE mg/dL (<2.0) 04/30/16 04:15 Ur Leukocyte Esterase NEGATIVE (NEGATIVE) 04/30/16 04:15 Urine WBC (Auto) 1 /HPF 04/30/16 04:15 Urine RBC (Auto) 6 /HPF 04/27/16 03:33 Urine Bacteria (Auto) TRACE /HPF 04/27/16 03:33 Squamous Epi Cells Auto 1 /HPF 04/30/16 04:15 Urine Mucus (Auto) RARE /LPF 04/30/16 04:15 Urine Osmolality mOsm/kg (300-900) 04/29/16 15:40 Urine Sodium 18 mmol/L (30-90) L 04/29/16 15:40 Urine Ascorbic Acid NEGATIVE (NEGATIVE) 04/30/16 04:15 Impressions: Chest X-Ray 04/27/16 00:00 IMPRESSION: NO ACUTE CARDIOPULMONARY PROCESS. NO SIGNIFICANT CHANGE FROM PRIOR STUDY.
== END 2016-05-01 12:54 | disposition home or self-care (01) | DRG 190 ==
LOC: ER 17:53 → EH 04-26 01:56 → 3N 04-26 08:06
PROVIDERS: ADMIT Internal Medicine; ATTEND Internal Medicine
DX: J44.0 Chronic obstructive pulmonary disease with (acute) lower respiratory infection (principal); I50.33 Acute on chronic diastolic (congestive) heart failure; E87.1 Hypo-osmolality and hyponatremia; J20.9 Acute bronchitis, unspecified; I48.2 Chronic atrial fibrillation; I27.2 Other secondary pulmonary hypertension; E11.9 Type 2 diabetes mellitus without complications; I34.0 Nonrheumatic mitral (valve) insufficiency; E78.5 Hyperlipidemia, unspecified; I10 Essential (primary) hypertension; E03.9 Hypothyroidism, unspecified; I25.10 Atherosclerotic heart disease of native coronary artery without angina pectoris; Z79.82 Long term (current) use of aspirin; Z79.01 Long term (current) use of anticoagulants; Z79.899 Other long term (current) drug therapy; Z95.5 Presence of coronary angioplasty implant and graft; Z95.1 Presence of aortocoronary bypass graft; Z90.710 Acquired absence of both cervix and uterus; Z88.1 Allergy status to other antibiotic agents; Z88.8 Allergy status to other drugs, medicaments and biological substances
CPT/HCPCS: 36415; 71020; 80048; 80053; 81001; 82550; 82553; 82962; 83735; 83880; 83930; 83935; 84295; 84300; 84439; 84443; 84481; 84484; 85025; 85027; 85610; 87040; 87070; 87205; 93005; 93010; 94660; 94667; 94668; 94799; 96360; 99285; G8978-GP; G8979-GP; J1644; J1815; J1940; J1956; J3490; J7030; J7512; J7614; J7620

== ENCOUNTER → 2016-05-06 | Outpatient (CLI) | payer MEDICARE, OTHER ==
[2016-05-06 17:17] LABS: ABSOLUTE BASOPHILS # (AUTO) 0.1 10^3/uL (0.0-0.2); ABSOLUTE EOSINOPHILS # (AUTO) 0.7 10^3/uL (0.0-0.6); ABSOLUTE LYMPHOCYTES (AUTO) 1.5 10^3/uL (0.5-4.7); ABSOLUTE NEUT (AUTO) 7.4 10^3/uL (1.7-8.2); BASOPHILS % (AUTO) 0.7 % (0-2); EOSINOPHILS % (AUTO) 6.6 % (0-6); HEMOGLOBIN 11.7 g/dL (12.0-15.5); HGB HCT DIFFERENCE -0.9; MEAN CORPUSCULAR HEMOGLOBIN 27.9 pg (27.0-33.4); MEAN CORPUSCULAR HGB CONC 32.5 g/dL (32.0-36.0); MEAN CORPUSCULAR VOLUME 86 fl (80-97); MONOCYTES % (AUTO) 9.2 % (3-13); RED BLOOD COUNT 4.19 10^6/uL (3.72-5.28); RED CELL DISTRIBUTION WIDTH 17.4 % (11.5-14.0); SEGMENTED NEUTROPHILS % (AUTO) 69.5 % (42-78); WHITE BLOOD COUNT 10.6 10^3/uL (4.0-10.5)
[2016-05-06 17:34] LABS: PROTHROMBIN TIME 27.6 SEC (11.4-15.4)
[2016-05-06 17:42] LABS: ALANINE AMINOTRANSFERASE 26 U/L (9-52); ALBUMIN 4.1 g/dL (3.5-5.0); ALKALINE PHOSPHATASE 64 U/L (38-126); ANION GAP 13 (5-19); ASPARTATE AMINO TRANSFERASE 17 U/L (14-36); BILIRUBIN,TOTAL 0.4 mg/dL (0.2-1.3); BLOOD UREA NITROGEN 16 mg/dL (7-20); CALCIUM 9.5 mg/dL (8.4-10.2); CARBON DIOXIDE 27 mmol/L (22-30); CHLORIDE 97 mmol/L (98-107); CREATININE RESULT 0.65 mg/dL (0.52-1.25); GLUCOSE 150 mg/dL (75-110); POTASSIUM 4.3 mmol/L (3.6-5.0); SODIUM 136.9 mmol/L (137-145); TOTAL PROTEIN 7.2 g/dL (6.3-8.2)
== END ==
LOC: OD 15:50
PROVIDERS: ATTEND Physician Assistant
DX: R05 Cough (principal); Z79.01 Long term (current) use of anticoagulants
CPT/HCPCS: 36415; 71020; 80053; 85025; 85610

== ENCOUNTER → 2016-05-14 | Outpatient (CLI) | payer MEDICARE, OTHER | LOC: RAD 14:02 | PROVIDERS: ATTEND Physician Assistant | DX: R42 Dizziness and giddiness (principal); J32.9 Chronic sinusitis, unspecified | CPT/HCPCS: 70450 ==

== ENCOUNTER → 2016-05-26 | Outpatient (CLI) | payer MEDICARE, OTHER | LOC: OD 11:38 | PROVIDERS: ATTEND Physician Assistant | DX: R05 Cough (principal) | CPT/HCPCS: 71020 ==